=== PATIENT | male | born 1965 | race Caucasian/White ===

== ENCOUNTER 2018-06-30 15:55 | Emergency (ER) | payer OTHER ==
[2018-06-30] MEDS ORDERED: TETRACAINE HCL 0.5% 2ML OPTH ONE (16:12)
[2018-06-30] MEDS ORDERED: TETANUS & DIPHTHERIA TOX,ADULT 0.5 ML VIAL ONE (16:12)
[2018-06-30] MEDS ORDERED: FLUORESCEIN SODIUM 0.6 MG/WRAP ONE (16:12)
[2018-06-30] MEDS ORDERED: Ringers Lactate 2,000 ML IV ONE (16:24)
[2018-06-30] MEDS ORDERED: IBUPROFEN 400 MG TAB ONE (17:13)
[2018-06-30] MEDS ORDERED: IBUPROFEN 200 MG TAB PO ONE (17:14)
[2018-06-30] MEDS ORDERED: HYDROCODONE/APAP 7.5/325 MG TAB ONE (17:46)
[2018-06-30] MEDS ORDERED: Ringers Lactate 1,000 ML IV ONE (18:18)
--- NOTE | 2018-06-30 18:29 | ER ---
Nurse's Notes [facility] Name: Dillon Be Age: 53 yrs Sex: Male : 1965 Arrival Date: 06/30/2018 Time: 15:56 Bed 16 Private MD: Diagnosis: Contact with and (suspected) exposure to other hazardous, chiefly nonmedicinal, chemicals-Left Eye Presentation: 06/30 16:01 Presenting complaint: Patient states: that he was spraying for mosquitos around his home with Bifenthrin and it got in his left eye. The eye is now burning and red. Transition of care: patient was not received from another setting of care. Onset of symptoms was June 30, 2018 at 14:00. Risk Assessment: Do you want to hurt yourself or someone else? Patient reports no desire to harm self or others. Initial Sepsis Screen: Does the patient meet any 2 criteria? No. Patient's initial sepsis screen is negative. Does the patient have a suspected source of infection? No. Patient's initial sepsis screen is negative. Care prior to arrival: None. 16:01 Method Of Arrival: Ambulatory 16:01 Acuity: SERAFIN 2 Triage Assessment: 17:46 General: Appears in no apparent distress. uncomfortable, Behavior is. General: Behavior em is calm, cooperative. Pain: Complains of pain in left eye. Historical: - Allergies: 17:46 No Known Allergies; em - PMHx: 17:46 Depression; em - PSHx: 17:46 left sided nepherectomy; Carpal Tunnel Repair; em - Immunization history:: Last tetanus immunization: up to date. - Social history:: Smoking status: Patient/guardian denies using tobacco. - Ebola Screening: : Patient negative for fever greater than or equal to 101.5 degrees Fahrenheit, and additional compatible Ebola Virus Disease symptoms Patient denies exposure to infectious person Patient denies travel to an Ebola-affected area in the 21 days before illness onset. Screenin:01 Abuse screen: Denies threats or abuse. Nutritional screening: No deficits noted. fc Tuberculosis screening: No symptoms or risk factors identified. Fall Risk None identified. Assessment: 16:07 Reassessment: Spoke with Anusha at the [place] [facility] control [facility] who states that fc eye must be flushed x 30 mins with NS or LR. Then let it rest for 45 minutes. Redness should be gone. If irritation continues pt may need some eye drops and to follow up with optho. Case #[id number]. 17:48 Reassessment: Patient appears in no apparent distress at this time. Patient and/or em family updated on plan of care and expected duration. Pain level reassessed. Patient is alert, oriented x 3, equal unlabored respirations, skin warm/dry/pink. pt reports pain in eye, provider notified. 18:23 Reassessment: Patient appears in no apparent distress at this time. Patient and/or em family updated on plan of care and expected duration. Pain level reassessed. Patient is alert, oriented x 3, equal unlabored respirations, skin warm/dry/pink. 500 ml bag of LR administered into left eye via mark lens. 18:43 Reassessment: Patient appears in no apparent distress at this time. Patient and/or em family updated on plan of care and expected duration. Pain level reassessed. Patient is alert, oriented x 3, equal unlabored respirations, skin warm/dry/pink. Vital Signs: 16:01 Weight 113.4 kg (R); Height 5 ft. 9 in. (175.26 cm) (R); Pain 10/10; fc 16:04 BP 152 / 93; Pulse 95; Resp 16; Temp 98.4(O); Pulse Ox 97% on R/A; em1 17:08 BP 146 / 94; Pulse 68; Resp 20; Pulse Ox 98% on R/A; mh5 17:44 BP 150 / 99; Pulse 88; Resp 18; Pulse Ox 99% on R/A; Pain 9/10; em 18:16 BP 151 / 81; Pulse 69; Resp 18; Pulse Ox 96% on R/A; mh5 16:01 Body Mass Index 36.92 (113.40 kg, 175.26 cm) ED Course: 15:56 Patient arrived in ED. as 15:59 Deniz Gtz PA is PHCP. cp 15:59 Dagoberto Colon MD is Attending Physician. cp 16:01 Arm band placed on Patient placed in an exam room, on a stretcher. fc 16:01 Patient has correct armband on for positive identification. Bed in low position. Call light in reach. 16:03 Triage completed. fc 16:04 Arnoldo Gandara LVN is Primary Nurse. em 18:00 No provider procedures requiring assistance completed. Patient did not have IV access em during this emergency room visit. 18:27 Ed Aviles MD is Referral Physician. cp 18:47 Primary Nurse role handed off by Arnoldo Gandara LVN em Administered Medications: 16:15 Not Given (pt has UTD tetanus): Tetanus-Diphtheria Toxoid Adult 0.5 ml IM once em 16:25 Drug: Tetracaine Drops 0.5 % 1 drops Route: Ophthalmic; Site: left eye; ja1 17:00 Follow up: Response: No adverse reaction; Pain is decreased em 16:51 Drug: Lactated Ringers Solution 2000 ml {Note: administered in left eye using mark ja1 lens.} Route: IV; Rate: 2000 per protocol; Site: Other; 18:00 Follow up: Response: No adverse reaction em 17:16 Drug: Ibuprofen 800 mg Route: PO; ja1 18:46 Follow up: Response: No adverse reaction; Pain is unchanged, physician notified em 18:00 Drug: Bellamy (7.5 mg-325 mg) 1 tabs Route: PO; em 18:41 Follow up: Response: No adverse reaction; Pain is decreased em Outcome: 18:29 Discharge ordered by MD. cp 18:44 Discharged to home ambulatory, with family. em 18:44 Condition: good 18:44 Discharge instructions given to patient, family, Instructed on discharge instructions, follow up and referral plans. medication usage, Demonstrated understanding of instructions, follow-up care, medications, Prescriptions given X 2. 18:45 Patient left the ED. em 18:49 Patient left the ED. em Signatures: Lindsey Aparicio, RN PAVITHRA Arnoldo Gandara LVN LVN em Samira Banks Eric em1 Deniz Gtz PA PA cp Martinez, Maria Tai Richardson, RN RN zaida
--- NOTE | 2018-06-30 18:30 | EDPHYS ---
Physician Documentation [facility] Name: Dillon Be Age: 53 yrs Sex: Male : 1965 Arrival Date: 06/30/2018 Time: 15:56 Bed 16 Private MD: ED Physician Dagoberto Colon HPI: 06/30 16:09 This 53 yrs old Male presents to ER via Ambulatory with complaints of cp Chemical Exposure In Eye. 16:09 The patient is experiencing foreign body sensation, pain, redness, The patient cp sustained to the left eye, caused by chemicals. Onset: The symptoms/episode began/occurred today, at 14:00. Patient reading glasses. 16:09 Patient reports he was using mosquito spray around home and believes he may have gotten cp chemical on hand and rubbed eye. Historical: - Allergies: 17:46 No Known Allergies; em - PMHx: 17:46 Depression; em - PSHx: 17:46 left sided nepherectomy; Carpal Tunnel Repair; em - Immunization history:: Last tetanus immunization: up to date. - Social history:: Smoking status: Patient/guardian denies using tobacco. - Ebola Screening: : Patient negative for fever greater than or equal to 101.5 degrees Fahrenheit, and additional compatible Ebola Virus Disease symptoms Patient denies exposure to infectious person Patient denies travel to an Ebola-affected area in the 21 days before illness onset. ROS: 16:15 Constitutional: Negative for body aches, chills, fever, poor PO intake. cp 16:15 ENT: Negative for injury, pain, and discharge. cp 16:15 Eyes: Positive for foreign body sensation, pain, redness, of the left eye, Negative for discharge. 16:15 Cardiovascular: Negative for chest pain, palpitations. 16:15 Respiratory: Negative for cough, shortness of breath, wheezing. 16:15 Abdomen/GI: Negative for abdominal pain, nausea, vomiting, and diarrhea. 16:15 Skin: Negative for cellulitis, rash. 16:15 Neuro: Negative for dizziness, headache. 16:15 All other systems are negative. Exam: 16:25 Constitutional: The patient appears in no acute distress, alert, awake, non-toxic, well cp developed, well nourished, uncomfortable. 16:25 Head/Face: Normocephalic, atraumatic. cp 16:25 Eyes: Periorbital structures: appear normal, Pupils: equal, round, and reactive to light and accomodation, Extraocular movements: intact throughout, Conjunctiva: injected, in the left eye, Sclera: no appreciated abnormality, Anterior chamber: normal, no hyphema, on appreciated narrow angle closure, Lids and lashes: appear normal, bilaterally, Visual christensen: are intact, Examination of the other eye reveals no obvious gross abnormality. 16:25 ENT: External ear(s): are unremarkable, Ear canal(s): are normal, clear, TM's: are normal, no evidence of bulging, no erythema, Nose: is normal, Mouth: is normal, Posterior pharynx: is normal, airway is patent, no erythema, no exudate. 16:25 Neck: ROM/movement: is normal, is supple, without pain, no range of motions limitations, no meningismus, no nuchal rigidity, Lymph nodes: no appreciated lymphadenopathy. 16:25 Chest/axilla: Inspection: normal, Palpation: is normal, no crepitus, no tenderness. 16:25 Cardiovascular: Rate: normal, Rhythm: regular. 16:25 Respiratory: the patient does not display signs of respiratory distress, Respirations: cp normal, no use of accessory muscles, no retractions, no splinting, no tachypnea, labored breathing, is not present, Breath sounds: are clear throughout, no decreased breath sounds, no stridor, no wheezing. 16:25 Abdomen/GI: Inspection: abdomen appears normal, Palpation: abdomen is soft and non-tender, in all quadrants. 16:25 Skin: cellulitis, is not appreciated, no rash present. 16:30 Visual Acuity: given verbally: 20/20 right eye, 20/25 left eye uncorrected. cp 18:12 Eyes: Corneas: abrasion, is not appreciated, on the left, foreign body, is not cp appreciated, on the left, a fluorescein strip employed to appreciate the findings. Vital Signs: 16:01 Weight 113.4 kg (R); Height 5 ft. 9 in. (175.26 cm) (R); Pain 10/10; fc 16:04 BP 152 / 93; Pulse 95; Resp 16; Temp 98.4(O); Pulse Ox 97% on R/A; em1 17:08 BP 146 / 94; Pulse 68; Resp 20; Pulse Ox 98% on R/A; mh5 17:44 BP 150 / 99; Pulse 88; Resp 18; Pulse Ox 99% on R/A; Pain 9/10; em 18:16 BP 151 / 81; Pulse 69; Resp 18; Pulse Ox 96% on R/A; mh5 16:01 Body Mass Index 36.92 (113.40 kg, 175.26 cm) fc MDM: 16:00 Patient medically screened. cp 16:30 Differential diagnosis: Corneal abrasion of Corneal ulcer of Foreign body in Acute cp iritis of 18:27 Data reviewed: vital signs, nurses notes, and as a result, I will discharge patient. cp 18:27 Counseling: I had a detailed discussion with the patient and/or guardian regarding: the cp historical points, exam findings, and any diagnostic results supporting the discharge/admit diagnosis, the need for outpatient follow up, an opthalmologist, to return to the emergency department if symptoms worsen or persist or if there are any questions or concerns that arise at home. Response to treatment: the patient's symptoms have markedly improved after treatment, and as a result, I will discharge patient. 06/30 16:04 Order name: Visual Acuity; Complete Time: 16:05 cp 06/30 16:04 Order name: Eye Tray; Complete Time: 16:05 cp 06/30 16:04 Order name: Fluoresene Opth strip; Complete Time: 16:05 cp Administered Medications: 16:15 Not Given (pt has UTD tetanus): Tetanus-Diphtheria Toxoid Adult 0.5 ml IM once em 16:25 Drug: Tetracaine Drops 0.5 % 1 drops Route: Ophthalmic; Site: left eye; ja1 17:00 Follow up: Response: No adverse reaction; Pain is decreased em 16:51 Drug: Lactated Ringers Solution 2000 ml {Note: administered in left eye using mark ja1 lens.} Route: IV; Rate: 2000 per protocol; Site: Other; 18:00 Follow up: Response: No adverse reaction em 17:16 Drug: Ibuprofen 800 mg Route: PO; ja1 18:46 Follow up: Response: No adverse reaction; Pain is unchanged, physician notified em 18:00 Drug: Nada (7.5 mg-325 mg) 1 tabs Route: PO; em 18:41 Follow up: Response: No adverse reaction; Pain is decreased em Disposition: 06/30/18 18:29 Discharged to Home. Impression: Contact with and (suspected) exposure to other hazardous, chiefly nonmedicinal, chemicals - Left Eye. - Condition is Stable. - Discharge Instructions: Chemical Conjunctivitis, Adult. - Prescriptions for Gentamicin 0.3 % Ophthalmic Drops - instill 1 drop by OPHTHALMIC route every 4 hours for 7 days instill drops as directed while awake; 1 bottle. Tramadol 50 mg Oral Tablet - take 1 tablet by ORAL route every 8 hours as needed; 15 tablet. - Medication Reconciliation Form, Thank You Letter, Antibiotic Education, Prescription Opioid Use form. - Follow up: Ed Aviles MD; When: 2 - 3 days; Reason: Recheck today's complaints. - Problem is new. - Symptoms have improved. Signatures: Lindsey Aparicio RN RN fc Arnoldo Gandara, OPERATIONS/DISPATCH OPERATIONS/DISPATCH em Deniz Gtz PA PA cp Aguilar, Jose RN RN ja1 Corrections: (The following items were deleted from the chart) 18:45 18:29 06/30/2018 18:29 Discharged to Home. Impression: Contact with and (suspected) em exposure to other hazardous, chiefly nonmedicinal, chemicals - Left Eye. Condition is Stable. Forms are Medication Reconciliation Form, Thank You Letter, Antibiotic Education, Prescription Opioid Use. Follow up: Ed Aviles; When: 2 - 3 days; Reason: Recheck today's complaints. Problem is new. Symptoms have improved. 18:49 18:45 06/30/2018 18:29 Discharged to Home. Impression: Contact with and (suspected) em exposure to other hazardous, chiefly nonmedicinal, chemicals - Left Eye. Condition is Stable. Discharge Instructions: Chemical Conjunctivitis, Adult. Prescriptions for Gentamicin 0.3 % Ophthalmic Drops - instill 1 drop by OPHTHALMIC route every 4 hours for 7 days instill drops as directed while awake; 1 bottle, Tramadol 50 mg Oral Tablet - take 1 tablet by ORAL route every 8 hours as needed; 15 tablet. and Forms are Medication Reconciliation Form, Thank You Letter, Antibiotic Education, Prescription Opioid Use. Follow up: Ed Aviles; When: 2 - 3 days; Reason: Recheck today's complaints. Problem is new. Symptoms have improved. em
== END 2018-06-30 18:49 | disposition home or self-care (01) ==
LOC: ER 15:55
DX: Z77.098 Contact with and (suspected) exposure to other hazardous, chiefly nonmedicinal, chemicals (principal)
CPT/HCPCS: 90714; 99283

== ENCOUNTER 2019-07-09 12:33 | Emergency (ER) | payer OTHER ==
[2019-07-09] MEDS ORDERED: MORPHINE 4 MG/ML SYR ONE (16:17)
[2019-07-09] MEDS ORDERED: ONDANSETRON 4 MG/2 ML VIAL ONE (16:17)
[2019-07-09 16:29] LABS: Absolute Lymphocytes (CBC) 1.6 K/uL (0.7-4.9); Basophils % 0.8 % (0-1.3); Hematocrit 45.6 % (39.6-49.0); Lymphocytes % 23.1 % (15.3-44.8); MPV 9.6 fL (7.6-11.3); RBC Red Blood Cell Count 5.25 M/uL (4.33-5.43)
[2019-07-09 17:26] LABS: Albumin 4.1 g/dL (3.4-5.0); Bilirubin Direct 0.1 mg/dL (0-0.2); Bilirubin Total 0.5 mg/dL (0.2-1.0); Potassium 3.5 mmol/L (3.5-5.1); Protein, Total 7.8 g/dL (6.4-8.2)
--- NOTE | 2019-07-09 18:09 | RAD REPORT ---
EXAM DESCRIPTION: CTAbdomen Pelvis W Contrast - 07/09/2019 6:01 pm CLINICAL HISTORY: Abdominal pain. ABD PAIN COMPARISON: <Comparisons> TECHNIQUE: Biphasic CT imaging of the abdomen and pelvis was performed with 100 ml non-ionic IV cont rast. All CT scans are performed using dose optimization technique as appropriate and may include automated exposure control or mA/KV adjustment according to patient size. FINDINGS: The lung bases are clear. The liver, spleen, pancreas, adrenal glands and kidneys are within normal limits. Partial left nephre ctomy changes. No bowel obstruction, free air, free fluid or abscess. Mild inflammation is seen surrounding a small section of sigmoid colon in the left lower quadrant compatible with mild acute diverticulitis. No abs cess seen. The appendix is normal. No evidence of significant lymphadenopathy. No suspicious bony findings. IMPRESSION: Mild acute sigmoid diverticulitis in the left lower quadrant. No abscess.
[2019-07-09] MEDS ORDERED: FENTANYL CITR 100 MCG/2 ML ONE (18:11)
--- NOTE | 2019-07-09 19:01 | ER ---
[facility] Name: Dillon Be Age: 54 yrs Sex: Male : 1965 Arrival Date: 07/09/2019 Time: 12:34 Bed 14 Private MD: Diagnosis: Diverticulitis of large intestine without perforation or abscess without bleeding Presentation: 07/09 13:08 Presenting complaint: Patient states: lower abd pain since , denies dm5 n/v/d/constipation. Transition of care: patient was not received from another setting of care. Onset of symptoms was July 05, 2019. Risk Assessment: Do you want to hurt yourself or someone else? Patient reports no desire to harm self or others. Care prior to arrival: None. 13:08 Method Of Arrival: Ambulatory dm5 13:08 Acuity: SERAFIN 3 dm5 18:00 Initial Sepsis Screen: Does the patient meet any 2 criteria? No. Patient's initial iw sepsis screen is negative. Does the patient have a suspected source of infection? No. Patient's initial sepsis screen is negative. Triage Assessment: 13:08 General: Appears in no apparent distress. uncomfortable, Behavior is calm, cooperative, sv appropriate for age. Pain: Complains of pain in right lower quadrant and left lower quadrant. Neuro: Level of Consciousness is awake, alert, obeys commands, Gait is steady. Respiratory: Respiratory effort is even, unlabored, Respiratory pattern is regular, symmetrical. GI: Reports lower abdominal pain, Patient currently denies constipation, diarrhea, nausea, vomiting. Historical: - Allergies: 13:09 No Known Allergies; dm5 - PMHx: 13:09 Depression; dm5 - PSHx: 13:09 left sided nepherectomy; Carpal Tunnel Repair; dm5 - Immunization history:: Adult Immunizations unknown. - Social history:: Smoking status: unknown. - Ebola Screening: : Patient negative for fever greater than or equal to 101.5 degrees Fahrenheit, and additional compatible Ebola Virus Disease symptoms Patient denies exposure to infectious person Patient denies travel to an Ebola-affected area in the 21 days before illness onset No symptoms or risks identified at this time. Screenin:31 Abuse screen: Denies threats or abuse. Denies injuries from another. Nutritional iw screening: No deficits noted. Tuberculosis screening: No symptoms or risk factors identified. Fall Risk IV access (20 points). Assessment: 16:30 General: Appears in no apparent distress. Behavior is calm, cooperative. Pain: iw Complains of pain in suprapubic area, right lower quadrant and left lower quadrant Pain currently is 7 out of 10 on a pain scale. Neuro: Level of Consciousness is awake, alert, obeys commands, Oriented to person, place, time, situation, Moves all extremities. Full function. Cardiovascular: Patient's skin is warm and dry. Respiratory: Respiratory effort is even, unlabored, Respiratory pattern is regular, symmetrical. GI: Abdomen is round obese, Bowel sounds present X 4 quads. Abd is soft X 4 quads Abdomen is tender to palpation in suprapubic area, right lower quadrant and left lower quadrant Patient currently denies diarrhea, nausea, vomiting. : Denies burning with urination. 18:16 Reassessment: Patient appears in no apparent distress at this time. Patient and/or iw family updated on plan of care and expected duration. Pain level reassessed. Patient is alert, oriented x 3, equal unlabored respirations, skin warm/dry/pink. pt states pain has not improved after morphine, new orders received, pt medicated with 75 mcg Fentanyl ,VSS, family at bedside, waiting Ct results. Vital Signs: 13:07 BP 145 / 82; Pulse 92; Resp 16; Temp 98.5(TE); Pulse Ox 96% on R/A; Weight 108.86 kg; dm5 Height 5 ft. 9 in. (175.26 cm); Pain 7/10; 18:16 BP 142 / 88; Pulse 65; Resp 16; Pulse Ox 100% on R/A; Pain 7/10; iw 13:07 Body Mass Index 35.44 (108.86 kg, 175.26 cm) dm5 ED Course: 12:34 Patient arrived in ED. as 13:08 Triage completed. dm5 13:09 Arm band placed on Patient placed in waiting room, Patient notified of wait time. dm5 15:15 Jose Ramon Elam PA is PHCP. jr8 15:15 Deniz Vanessa MD is Attending Physician. jr8 15:38 Ernestina Reilly, RN is Primary Nurse. iw 15:48 Radiology exam delayed due to lab results not completed at this time. (BUN/Creatinine). bq 16:10 Initial lab(s) drawn, by me, sent to lab. Inserted saline lock: 20 gauge in right iw antecubital area, using aseptic technique. Blood collected. 18:00 Patient has correct armband on for positive identification. iw 18:04 CT Abd/Pelvis - IV Contrast Only In Process Unspecified. EDMS 19:00 Javier Fuentes MD is Referral Physician. jr8 19:20 No provider procedures requiring assistance completed. IV discontinued, intact, iw bleeding controlled, No redness/swelling at site. Pressure dressing applied. Administered Medications: 16:37 Drug: morphine 4 mg Route: IVP; Site: left antecubital; iw 16:37 Drug: Zofran 4 mg Route: IVP; Site: left antecubital; iw 18:15 Drug: fentaNYL (PF) 75 mcg {Note: RASS:0.} Route: IVP; Site: left antecubital; iw 19:23 Drug: Cipro 500 mg Route: PO; iw 19:23 Drug: Flagyl 500 mg Route: PO; iw Outcome: 19:01 Discharge ordered by . jr8 19:20 Discharged to home ambulatory, with family. iw 19:20 Condition: good 19:20 Discharge instructions given to patient, family, Instructed on discharge instructions, follow up and referral plans. medication usage, Demonstrated understanding of instructions, follow-up care, medications, Prescriptions given X 4. 19:24 Patient left the ED. iw Signatures: Dispatcher [employer] EDMS Alice Smiley RN RN dm5 Kristin Garcia RN RN sv Quilty, Betty bq Martinez, Amelia as Williams, Irene, RN RN iw Jose Ramon Elam PA PA jr8 Corrections: (The following items were deleted from the chart) 13:09 13:07 Pulse 92bpm; Pulse Ox 96% RA; Temp 98.5F Temporal; 108.86 kg; Height 5 ft. 9 in.; dm5 BMI: 35.4; Pain 7/10; dm5
--- NOTE | 2019-07-09 19:02 | EDPHYS ---
Physician Documentation [facility] Name: Dillon Be Age: 54 yrs Sex: Male : 1965 Arrival Date: 07/09/2019 Time: 12:34 Bed 14 Private MD: ED Physician Deniz Vanessa HPI: 07/09 15:59 This 54 yrs old Male presents to ER via Ambulatory with complaints of jr8 Abdominal Pain. 15:59 The patient presents with abdominal pain in the lower abdomen, in the left lower jr8 quadrant. Onset: The symptoms/episode began/occurred 5 day(s) ago. The symptoms do not radiate. Associated signs and symptoms: none. Pertinent negatives: nausea, vomiting, and diarrhea, blood in stools, constipation, diarrhea, dysuria, fever, hematuria, nausea, vomiting, vomiting blood. The symptoms are described as sharp. Modifying factors: The symptoms are alleviated by nothing, the symptoms are aggravated by nothing. Severity of pain: At its worst the pain was moderate in the emergency department the pain is unchanged. The patient has experienced a previous episode. The patient has not recently seen a physician. Pt reports lower abd and LLQ pain for the last five days, reports hx of diverticulitis, denies N/V/D, denies perineal pain. . Historical: - Allergies: 13:09 No Known Allergies; dm5 - PMHx: 13:09 Depression; dm5 - PSHx: 13:09 left sided nepherectomy; Carpal Tunnel Repair; dm5 - Immunization history:: Adult Immunizations unknown. - Social history:: Smoking status: unknown. - Ebola Screening: : Patient negative for fever greater than or equal to 101.5 degrees Fahrenheit, and additional compatible Ebola Virus Disease symptoms Patient denies exposure to infectious person Patient denies travel to an Ebola-affected area in the 21 days before illness onset No symptoms or risks identified at this time. ROS: 15:59 Constitutional: Negative for fever, chills, and weight loss, Eyes: Negative for injury, jr8 pain, redness, and discharge, ENT: Negative for injury, pain, and discharge, Neck: Negative for injury, pain, and swelling, Cardiovascular: Negative for chest pain, palpitations, and edema, Respiratory: Negative for shortness of breath, cough, wheezing, and pleuritic chest pain, Back: Negative for injury and pain, : Negative for injury, bleeding, discharge, and swelling, MS/Extremity: Negative for injury and deformity, Neuro: Negative for headache, weakness, numbness, tingling, and seizure. 15:59 Abdomen/GI: Positive for abdominal pain, Negative for nausea and vomiting, nausea, vomiting, diarrhea, black/tarry stool, rectal pain. Exam: 15:59 Constitutional: This is a well developed, well nourished patient who is awake, alert, jr8 and in no acute distress. Head/Face: Normocephalic, atraumatic. Eyes: Pupils equal round and reactive to light, extra-ocular motions intact. Lids and lashes normal. Conjunctiva and sclera are non-icteric and not injected. Cornea within normal limits. Periorbital areas with no swelling, redness, or edema. ENT: Nares patent. No nasal discharge, no septal abnormalities noted. Tympanic membranes are normal and external auditory canals are clear. Oropharynx with no redness, swelling, or masses, exudates, or evidence of obstruction, uvula midline. Mucous membranes moist. Neck: Trachea midline, no thyromegaly or masses palpated, and no cervical lymphadenopathy. Supple, full range of motion without nuchal rigidity, or vertebral point tenderness. No Meningismus. Chest/axilla: Normal chest wall appearance and motion. Nontender with no deformity. No lesions are appreciated. Cardiovascular: Regular rate and rhythm with a normal S1 and S2. No gallops, murmurs, or rubs. Normal PMI, no JVD. No pulse deficits. Respiratory: Lungs have equal breath sounds bilaterally, clear to auscultation and percussion. No rales, rhonchi or wheezes noted. No increased work of breathing, no retractions or nasal flaring. Back: No spinal tenderness. No costovertebral tenderness. Full range of motion. Skin: Warm, dry with normal turgor. Normal color with no rashes, no lesions, and no evidence of cellulitis. Neuro: Awake and alert, GCS 15, oriented to person, place, time, and situation. Cranial nerves II-XII grossly intact. Motor strength 5/5 in all extremities. Sensory grossly intact. Cerebellar exam normal. Normal gait. 15:59 Abdomen/GI: Inspection: abdomen appears normal, Bowel sounds: normal, Palpation: soft, in all quadrants, moderate abdominal tenderness, in the left lower quadrant, Indicators: McBurney's point is not tender, Hanley's sign is negative, Rovsing's sign is negative, Obturator sign is negative, Psoas sign is negative. Vital Signs: 13:07 BP 145 / 82; Pulse 92; Resp 16; Temp 98.5(TE); Pulse Ox 96% on R/A; Weight 108.86 kg; dm5 Height 5 ft. 9 in. (175.26 cm); Pain 7/10; 18:16 BP 142 / 88; Pulse 65; Resp 16; Pulse Ox 100% on R/A; Pain 7/10; iw 13:07 Body Mass Index 35.44 (108.86 kg, 175.26 cm) dm5 MDM: 15:15 Patient medically screened. jr8 19:00 Data reviewed: vital signs, nurses notes, lab test result(s), radiologic studies, CT jr8 scan, and as a result, I will discharge patient. Data interpreted: Pulse oximetry: on room air is 100 %. Interpretation: normal. 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 Response to treatment: the patient's symptoms have markedly improved after treatment. 07/09 15:43 Order name: Basic Metabolic Panel; Complete Time: 17:31 iw 07/09 15:43 Order name: CBC with Diff 07/09 15:43 Order name: Creatinine for Radiology; Complete Time: 17:43 iw 07/09 15:43 Order name: Hepatic Function; Complete Time: 17:31 iw 07/09 15:43 Order name: Lipase; Complete Time: 17:31 iw 07/09 15:43 Order name: CT Abd/Pelvis - IV Contrast Only; Complete Time: 18:59 iw 07/09 15:43 Order name: IV Saline Lock; Complete Time: 16:37 iw 07/09 15:43 Order name: Labs collected and sent; Complete Time: 16:37 iw Administered Medications: 16:37 Drug: morphine 4 mg Route: IVP; Site: left antecubital; iw 16:37 Drug: Zofran 4 mg Route: IVP; Site: left antecubital; iw 18:15 Drug: fentaNYL (PF) 75 mcg {Note: RASS:0.} Route: IVP; Site: left antecubital; iw 19:23 Drug: Cipro 500 mg Route: PO; iw 19:23 Drug: Flagyl 500 mg Route: PO; iw Disposition: 07/10 07:45 Co-signature as Attending Physician, Deniz Vanessa MD I agree with the assessment and [facility] plan of care. Disposition: 07/09/19 19:01 Discharged to Home. Impression: Diverticulitis of large intestine without perforation or abscess without bleeding. - Condition is Stable. - Discharge Instructions: Diverticulitis. - Prescriptions for Cipro 500 mg Oral Tablet - take 1 tablet by ORAL route every 12 hours for 10 days; 20 tablet. Flagyl 500 mg Oral Tablet - take 1 tablet by ORAL route every 6 hours for 10 days; 40 tablet. Tylenol- Codeine #3 300-30 mg Oral Tablet - take 2 tablets by ORAL route every 6 hours As needed; 12 tablet. Zofran 4 mg Oral Tablet - take 1 tablet by ORAL route every 12 hours As needed; 20 tablet. - Medication Reconciliation Form, Thank You Letter, Antibiotic Education, Prescription Opioid Use form. - Follow up: Javier Fuentes MD; When: 1 week; Reason: Recheck today's complaints, Continuance of care, Re-evaluation by your physician. - Problem is new. - Symptoms have improved. Signatures: Dispatcher [employer] Alice Gipson, RN RN 5 Deniz Vanessa MD MD cha Williams, Irene, RN RN Jose Ramon Elam PA PA jr8 Corrections: (The following items were deleted from the chart) 07/09 19:24 19:01 07/09/2019 19:01 Discharged to Home. Impression: Diverticulitis of large iw intestine without perforation or abscess without bleeding. Condition is Stable. Forms are Medication Reconciliation Form, Thank You Letter, Antibiotic Education, Prescription Opioid Use. Follow up: Javier Fuentes; When: 1 week; Reason: Recheck today's complaints, Continuance of care, Re-evaluation by your physician. Problem is new. Symptoms have improved. jr8
[2019-07-09] MEDS ORDERED: metroNIDAZOLE 500 MG TABLET ONE (19:15)
[2019-07-09] MEDS ORDERED: CIPROFLOXACIN HCL 500 MG TAB ONE (19:15)
[2019-07-09 19:33] VITALS: TEMP 98.5
[2019-07-09 19:34] VITALS: BP 142/88; O2SAT 100
== END 2019-07-09 19:24 | disposition home or self-care (01) ==
LOC: ER 12:33
DX: K57.32 Diverticulitis of large intestine without perforation or abscess without bleeding (principal)
CPT/HCPCS: 85025; 80048; 36415; 80076; 83690; 74177; 96375; 96374; 99284; Q9966; J3010; J2405

== ENCOUNTER 2022-09-19 11:15 | Observation (INO) | payer OTHER ==
--- OUTSIDE RECORDS SUMMARY | 2022-09-19 11:18 | XMS REPORT | Continuity of Care Document ---
:1965 Author Organization [facility] t Address [facility] Travis Lomeli. [address] [place] [id number] Care Team Providers Name Role Phone oFx Vang Primary Care Physician 1, [facility] Bed Attending Clinician Unavailable Rivka Edge MD Attending Clinician RIVKA EDGE Attending Clinician Unavailable RIVKA EDGE Attending Clinician Unavailable Only, [facility] Test Attending Clinician Unavailable Doctor Unassigned, Gandy Attending Clinician Unavailable Fox Delgado MD Attending Clinician FOX DELGADO Attending Clinician Unavailable Payers Payer Name Policy Type Policy Number Effective Date Expiration Date S ource Problems This patient has no known problems. Allergies, Adverse Reactions, Alerts Allergy Allergy Status Severity Reaction(s) Onset Inactive Treating Comm ents Source Name Type Date Date Clinician NO KNOWN Drug Active Univers ALLERGIE Class ity of S [facility] Social History Social Habit Start Date Stop Date Quantity Comments Source Exposure to 2022-04-12 2022-04-22 Not sure [facility] SARS-CoV-2 (event) 00:00:00 21:06:00 Medica l Branch Sex Assigned At [birth year] [facility] 00:00:00 00:00:00 Medical [place] Smoking Status Start Date Stop Date Source Unknown if ever smoked [facility] Medications This patient has no known medications. 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 [id number] [id number] [facility] 19:30:00 22:00:00 Visit Rivka Edge [id number]. 10 ity of [facility] [id number] [facility] [id number] [facility] [address] 2022-04-22 2022-04-22 Outpatient R RIVKA EDGE [facility] [id number] Univers 19:30: 19:30:00 RIVKA EDGE ituma [facility] 2022-04-21 2022-04-21 Laboratory Only, [facility] Test [facility] 1.2.840. 114 [id number] Univers 07:30:00 07:45:00 Only Rivka Edge 350.1.13. 10 ity of [facility] [id number] [facility] [id number] [facility] [address] 2022-04-21 2022-04-21 Outpatient R RIVKA EDGE [facility] [id number] Univers 07:30:00 07:30:00 ALIYAH EDGEL ity [facility] 2022-04-21 2022-04-21 Orders Doctor FONTANA [id number] [id number] Univers 00:00:00 00:00:00 Only UnassignedJULIANA 350.1.13.10 ity of Gandy [facility] [id number] [facility] [id number] [facility] [address] 2022-04-12 2022-04-12 Outpatient R RIVKA EDGE [facility] [id number] Univers 19:30:00 19:30:00 RIVKA EDGE ituma [facility] 2022-03-11 2022-03-11 Outpatient R RIVKA EDGE [facility] [id number] Univers 19:30:00 19:30:00 RIVKA EDGE ituma of [facility] 2022-02-27 2022-02-27 Outpatient R RIVKA EDGE [facility] [id number] Univers 19:30:00 19:30:00 ALIYAH EDGEL ituma [facility] 2022-01-15 2022-01-15 Orders Doctor ADDI 1.2.840.114 [id number] Univers 00:00:00 00:00:00 Only Unassigned, JULIANA 350.1.13.10 ity of [facility] [id number] [facility] [id number] [facility] [address] 2021-12-08 2021-12-08 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 2.840.114 [id number] Univers 19:30:00 22:00:00 Visit GreggVida leejulianne TAVERAS 350.1.13. 10 ity [facility] [id number] [facility] [id number] [facility] [address] 2021-12-08 2021-12-08 Outpatient R RIVKA EDGE [facility] [id number] Univers 19:30:00 19:30:00 RIVKA EDGE [facility] 2021-12-07 2021-12-07 Laboratory Only, [facility] Test [facility] 1.2.840. 114 [id number] Univers 08:00:00 08:15:00 Only Fox Delgado 350.1.13.10 ity [facility] [id number] [facility] [id number] [facility] [address] 2021-12-07 2021-12-07 Outpatient R DANNY [facility] [id number] Univers 08:00:00 08:00:00 FOX low [facility] Results This patient has no known results.
[2022-09-19] MEDS ORDERED: ASPIRIN 81 MG CHEWABLE TABLET ONE (11:34)
[2022-09-19 11:42] LABS: Absolute Lymphocytes (CBC) 1.5 K/uL (0.7-4.9); Hematocrit 50.1 % (39.6-49.0); Lymphocytes % 22.5 % (15.3-44.8); MCV 86.5 fL (80-100); MPV 8.7 fL (7.6-11.3)
[2022-09-19 11:59] LABS: Magnesium 2.3 mg/dL (1.8-2.4); Troponin High Sensitivity 16.1 pg/mL (<58.9)
--- NOTE | 2022-09-19 12:55 | RAD REPORT ---
EXAM DESCRIPTION: CT - Chest Angio - 09/19/2022 12:25 pm CLINICAL HISTORY: Chest pain COMPARISON: None. TECHNIQUE: Dynamically enhanced axial 3 mm thick images of the chest were obtained during administra tion of <100> mL Isovue 370 IV contrast. Coronal and oblique reconstruction images were generated and reviewed. Exam utilizes a protocol for optimal evaluation of pulmonary arterial tree. Maximum intensity projections 3D imaging was utilized All CT scans are performed using dose optimization technique as appropriate and may include automated exposure control or mA/KV adjustment according to patient size. FINDINGS: The opacification the pulmonary arteries is somewhat suboptimal. A pulmonary embolus is no t seen. A thoracic aortic aneurysm is not noted. A pleural effusion is not seen. A pericardial effusion is not seen. A lung consolidation is not present. 25 millimeter nodule left lower lobe. 3 millimeter subpleural nodule right middle lobe IMPRESSION: No gross evidence of a pulmonary embolism 25 millimeter nodule left lower lobe may represent neoplasm Additional 3 millimeter right middle lobe subpleural nodule
--- NOTE | 2022-09-19 12:57 | RAD REPORT ---
EXAM DESCRIPTION: [facility] Single View09/19/2022 12:02 pm CLINICAL HISTORY: Chest pain COMPARISON: CT chest September 19, 2022 FINDINGS: The known a 25 millimeter left lower lobe nodule is not well visualized on this exam as it is obscured by the heart. 3 millimeter right middle lobe nodule it is also not clearly seen. Otherwise, lungs appear clear. Heart is normal size
[2022-09-19 14:09] LABS: SARS-COV-2 RT PCR NEGATIVE (NEGATIVE)
--- NOTE | 2022-09-19 14:15 | ER ---
Nurse's Notes [facility] Name: Dillon Be Age: 57 yrs Sex: Male : 1965 Arrival Date: 09/19/2022 Time: 11:16 Bed 25 Private MD: Diagnosis: Chest pain, unspecified;Pulmonary nodules Presentation: 09/19 11:26 Chief complaint: Patient states: left chest pressure and SOB x1 day with associated kb3 bilateral hand and feet swelling x3 days. Denies fever, congestion, N/V. Coronavirus screen: Vaccine status: Patient reports receiving the 2nd dose of the covid vaccine. Client denies travel out of the [place] in the last 14 days. Ebola Screen: Patient negative for fever greater than or equal to 101.5 degrees Fahrenheit, and additional compatible Ebola Virus Disease symptoms Patient denies exposure to infectious person. Patient denies travel to an Ebola-affected area in the 21 days before illness onset. Initial Sepsis Screen: Does the patient meet any 2 criteria? No. Patient's initial sepsis screen is negative. Does the patient have a suspected source of infection? No. Patient's initial sepsis screen is negative. Risk Assessment: Do you want to hurt yourself or someone else? Patient reports no desire to harm self or others. Onset of symptoms was September 18, 2022. 11:26 Method Of Arrival: Ambulatory 3 11:26 Acuity: SERAFIN 2 kb3 Triage Assessment: : General: Appears in no apparent distress. uncomfortable, Behavior is calm, cooperative. kb3 Pain: Complains of pain in left clavicle, anterior aspect of left upper chest and left breast Pain does not radiate. Pain currently is 8 out of 10 on a pain scale. Quality of pain is described as pressure, Pain began 1 day ago. Is continuous, Also complains of diaphoresis, sleeplessness, shortness of breath. Cardiovascular: Reports chest pain, diaphoresis, shortness of breath. Respiratory: Reports shortness of breath at rest the patient has mild shortness of breath. Historical: - Allergies: 11: No Known Allergies; kb3 - Home Meds: 11:34 duloxetine 60 mg oral CDRS 1 cap once daily [Active]; lithium carbonate 300 mg Oral cap kb3 1 cap daily [Active]; lithium carbonate 300 mg Oral cap 3 cap nightly [Active]; propranolol 80 mg Oral Cs24 1 cap once daily [Active]; lisinopril-hydrochlorothiazide 20-12.5 mg oral tab 1 tab once daily [Active]; atorvastatin 80 mg oral tab 1 tab once daily [Active]; - PMHx: 11:27 Depression; Bipolar disorder; Hypercholesterolemia; Hypertensive disorder; kb3 - PSHx: 11:27 Left Nephrectomy; Bilateral Carpel Tunnel Sx; Right Elbow Sx; kb3 - Immunization history:: Adult Immunizations up to date, Client reports receiving the 2nd dose of the Covid vaccine, Last tetanus immunization: up to date. - Social history:: Smoking status: Patient denies any tobacco usage or history of. Screenin:41 Abuse screen: Denies threats or abuse. Denies injuries from another. Nutritional tp1 screening: No deficits noted. Tuberculosis screening: No symptoms or risk factors identified. Fall Risk None identified. Assessment: 11:37 General: Appears in no apparent distress. comfortable, Behavior is calm, cooperative. tp1 Pain: Complains of pain in chest Pain does not radiate. Pain currently is 7 out of 10 on a pain scale. Quality of pain is described as pressure, Pain began 1 day ago. Is continuous. Neuro: Level of Consciousness is awake, alert, obeys commands, Oriented to person, place, time, situation, Reports dizziness, numbness in left foot Denies blurred vision headache. Cardiovascular: Reports diaphoresis, shortness of breath, Patient's skin is warm and dry. Rhythm is sinus rhythm. Respiratory: Airway is patent Respiratory effort is even, unlabored. GI: Abdomen is obese, Patient currently denies nausea. : No signs and/or symptoms were reported regarding the genitourinary system. EENT: No signs and/or symptoms were reported regarding the EENT system. Derm: Skin is pink, warm \T\ dry. Musculoskeletal: Circulation, motion, and sensation intact. 12:45 Reassessment: Patient appears in no apparent distress at this time. No changes from tp1 previously documented assessment. Patient and/or family updated on plan of care and expected duration. Pain level reassessed. Patient is alert, oriented x 3, equal unlabored respirations, skin warm/dry/pink. 13:42 Reassessment: Patient appears in no apparent distress at this time. Patient is alert, tp1 oriented x 3, equal unlabored respirations, skin warm/dry/pink. continues to CO SOB and chest pressure. 14:28 Reassessment: Patient appears in no apparent distress at this time. No changes from tp1 previously documented assessment. Patient is alert, oriented x 3, equal unlabored respirations, skin warm/dry/pink. at bedside. 15:27 Reassessment: Patient appears in no apparent distress at this time. No changes from tp1 previously documented assessment. Patient is alert, oriented x 3, equal unlabored respirations, skin warm/dry/pink. resting comfortably watching TV. Vital Signs: 11:26 BP 151 / 90; Pulse 106; Resp 22; Pulse Ox 97% ; Weight 120.2 kg; Height 5 ft. 9 in. kb3 (175.26 cm); Pain 8/10; 12:45 BP 136 / 81; Pulse 89; Resp 18; Pulse Ox 98% on R/A; tp1 13:42 BP 150 / 87; Pulse 77; Resp 17; Pulse Ox 99% on R/A; tp1 14:29 BP 135 / 81; Pulse 84; Resp 18; Pulse Ox 100% on R/A; tp1 15:27 BP 133 / 73; Pulse 75; Resp 20; Pulse Ox 97% on R/A; tp1 11:26 Body Mass Index 39.13 (120.20 kg, 175.26 cm) kb3 ED Course: 11:16 Patient arrived in ED. am2 11:19 Kali Castillo DO is Attending Physician. ms3 11:25 Patient has correct armband on for positive identification. Placed in gown. Call light mm9 in reach. Side rails up X 1. Adult w/ patient. Warm blanket given. property assessment monitor on. Pulse ox on. NIBP on. 11:26 EKG done, by ED staff, reviewed by Kali Castillo DO. mm9 11:27 Triage completed. kb3 11:27 Arm band placed on right wrist. Patient placed in an exam room, on a stretcher. kb3 11:31 Helena Trammell, PAVITHRA is Primary Nurse. tp1 11:37 No provider procedures requiring assistance completed. Inserted saline lock: 20 gauge tp1 in right antecubital area, using aseptic technique. Blood collected. Patient maintains SpO2 saturation greater than 95% on room air. 12:03 XRAY Chest (1 view) In Process Unspecified. EDMS 12:27 CT Chest Angio In Process Unspecified. EDMS 13:07 COVID-19/FLU A+B Sent. tp1 14:12 Neva Fu MD is Hospitalizing Provider. ms3 18:10 Patient admitted, IV remains in place. intact, No redness/swelling at site. jl7 Administered Medications: 11:36 Drug: Aspirin Chewable Tablet 324 mg Route: PO; tp1 12:57 Follow up: Response: No adverse reaction tp1 Medication: 11:41 VIS not applicable for this client. tp1 Outcome: 14:14 Decision to Hospitalize by Provider. ms3 17:00 Admitted to ER Hold. [facility]. jl7 17:00 Condition: stable 17:00 Discharge instructions given to patient, Instructed on the need for admit, Demonstrated understanding of instructions. 20:40 Patient left the ED. kd3 Signatures: Dispatcher [employer] EDMS Petrona Barros RN RN jl7 Zeny Matthews am2 Kali Castillo DO DO ms3 Lori Vincent RN RN kd3 Helena Trammell RN RN tp1 Priti Bellamy, PAVITHRA RN kb3 Divina Banks mm9
--- NOTE | 2022-09-19 14:15 | EDPHYS ---
Physician Documentation [facility] Name: Dillon Be Age: 57 yrs Sex: Male : 1965 Arrival Date: 09/19/2022 Time: 11:16 Bed 25 Private MD: ED Physician Kali Castillo HPI: 09/19 14:41 This 57 yrs old Male presents to ER via Ambulatory with complaints of Chest Pressure, ms3 Leg Pain - tingling, Breathing Difficulty. 14:41 The patient or guardian reports chest pain that is located primarily in the substernal ms3 area. Onset: 1 day(s) ago. The pain does not radiate. Associated signs and symptoms: Pertinent positives: diaphoresis, nausea, shortness of breath. The chest pain is described as a pressure. Duration: The patient or guardian reports a single episode, that is still ongoing. Modifying factors: The symptoms are alleviated by nothing. the symptoms are aggravated by nothing. Severity of pain: At its worst the pain was moderate in the emergency department the pain is unchanged. Historical: - Allergies: : No Known Allergies; kb3 - Home Meds: 11:34 duloxetine 60 mg oral CDRS 1 cap once daily [Active]; lithium carbonate 300 mg Oral cap kb3 1 cap daily [Active]; lithium carbonate 300 mg Oral cap 3 cap nightly [Active]; propranolol 80 mg Oral Cs24 1 cap once daily [Active]; lisinopril-hydrochlorothiazide 20-12.5 mg oral tab 1 tab once daily [Active]; atorvastatin 80 mg oral tab 1 tab once daily [Active]; - PMHx: 11:27 Depression; Bipolar disorder; Hypercholesterolemia; Hypertensive disorder; kb3 - PSHx: : Left Nephrectomy; Bilateral Carpel Tunnel Sx; Right Elbow Sx; kb3 - Immunization history:: Adult Immunizations up to date, Client reports receiving the 2nd dose of the Covid vaccine, Last tetanus immunization: up to date. - Social history:: Smoking status: Patient denies any tobacco usage or history of. ROS: 14:41 Constitutional: Negative for fever, and chills. ENT: Negative for injury, pain, and ms3 discharge, Neck: Negative for injury, pain, and swelling. 14:41 Abdomen/GI: Negative for abdominal pain, nausea, vomiting, diarrhea, and constipation, MS/Extremity: Negative for injury and deformity, Skin: Negative for injury, rash, and discoloration. 14:41 Cardiovascular: Positive for chest pain. 14:41 Respiratory: Positive for dyspnea on exertion, shortness of breath. 14:41 All other systems are negative. Exam: 14:41 Head/Face: Normocephalic, atraumatic. ENT: Nares patent. No nasal discharge, no ms3 septal abnormalities noted. Tympanic membranes are normal and external auditory canals are clear. Oropharynx with no redness, swelling, or masses, exudates, or evidence of obstruction, uvula midline. Mucous membranes moist. Neck: Trachea midline, no cervical lymphadenopathy. Supple, full range of motion without nuchal rigidity, or vertebral point tenderness. No Meningismus. Chest/axilla: Normal chest wall appearance and motion. Nontender with no deformity. Respiratory: Lungs have equal breath sounds bilaterally, clear to auscultation and percussion. No rales, rhonchi or wheezes noted. No increased work of breathing, no retractions or nasal flaring. Abdomen/GI: Soft, non-tender, with normal bowel sounds. No distension or tympany. No guarding or rebound. No evidence of tenderness throughout. Skin: Warm, dry with normal turgor. Normal color with no rashes, no lesions, and no evidence of cellulitis. MS/ Extremity: Pulses equal, no cyanosis. Neurovascular intact. Full, normal range of motion. 14:41 Constitutional: The patient appears in no acute distress, alert, awake, comfortable, non-diaphoretic, non-toxic, well hydrated, well groomed, obese. 15:47 ECG was reviewed by the Attending Physician. ms3 Vital Signs: 11:26 BP 151 / 90; Pulse 106; Resp 22; Pulse Ox 97% ; Weight 120.2 kg; Height 5 ft. 9 in. kb3 (175.26 cm); Pain 8/10; 12:45 BP 136 / 81; Pulse 89; Resp 18; Pulse Ox 98% on R/A; tp1 13:42 BP 150 / 87; Pulse 77; Resp 17; Pulse Ox 99% on R/A; tp1 14:29 BP 135 / 81; Pulse 84; Resp 18; Pulse Ox 100% on R/A; tp1 15:27 BP 133 / 73; Pulse 75; Resp 20; Pulse Ox 97% on R/A; tp1 11:26 Body Mass Index 39.13 (120.20 kg, 175.26 cm) kb3 MDM: 11:29 Patient medically screened. ms3 13:11 HEART Score: History: Slightly Suspicious (0), ECG: Non specific repolarization ms3 disturbance / LBTB / PM (1), Age: > 45 and < 65 years (1), Risk Factors: > or = 3 Risk factors for atherosclerotic disease (2), [Hypercholesterolemia] [Hypertension] [Obesity] Troponin: < or = 1 x Normal Limit (0), Total Score = 4. 14:41 The patient was given aspirin in the Emergency Department. Data reviewed: vital signs, ms3 nurses notes, lab test result(s), EKG, radiologic studies, and as a result, I will admit patient. Data interpreted: child monitor: rate is 85 beats/min, rhythm is normal sinus rhythm, regular, with no ectopy, Interpretation: normal rate, normal rhythm, Pulse oximetry:. Counseling: I had a detailed discussion with the patient and/or guardian regarding: the historical points, exam findings, and any diagnostic results supporting the discharge/admit diagnosis, lab results, radiology results, the need for further work-up and treatment in the hospital. ED course: Discussed case with Dr Fu and he accepts patient as observation. All questions answered. Discussed plan with patient and his and he understands/ agrees with plan. Discussed pulmonary nodules and possible neoplasm with patient and his . Recommended patient to follow up with pulmonology after discharge.. 09/19 11:20 Order name: Basic Metabolic Panel; Complete Time: 12:04 ms3 09/19 11:20 Order name: CBC with Diff; Complete Time: 11:57 ms3 09/19 11:20 Order name: Magnesium; Complete Time: 12:04 ms3 09/19 11:20 Order name: NT PRO-BNP; Complete Time: 12:04 ms3 09/19 11:20 Order name: Troponin HS; Complete Time: 12:04 ms3 09/19 11:29 Order name: D-Dimer; Complete Time: 11:57 ms3 09/19 12:41 Order name: COVID-19/FLU A+B; Complete Time: 14:09 ms3 09/19 15:10 Order name: Basic Metabolic Panel EDMS 09/19 15:10 Order name: Basic Metabolic Panel EDMS 09/19 15:10 Order name: CBC with Automated Diff EDMS 09/19 15:10 Order name: CBC with Automated Diff EDMS 09/19 15:10 Order name: Lipid Profile EDMS 09/19 15:10 Order name: Lipid Profile EDMS 09/19 19:56 Order name: Protime (+INR) EDMS 09/19 11:20 Order name: XRAY Chest (1 view); Complete Time: 13:02 ms3 09/19 11:20 Order name: EKG; Complete Time: 11:20 ms3 09/19 11:20 Order name: Cardiac monitoring; Complete Time: 11:25 ms3 09/19 11:20 Order name: EKG - Nurse/Tech; Complete Time: 11:25 ms3 09/19 11:20 Order name: IV Saline Lock; Complete Time: 11:31 ms3 09/19 11:20 Order name: Labs collected and sent; Complete Time: 11:31 ms3 09/19 11:20 Order name: O2 Per Protocol; Complete Time: 11:25 ms3 09/19 11:20 Order name: O2 Sat Monitoring; Complete Time: 11:25 ms3 09/19 11:57 Order name: CT Chest Angio; Complete Time: 13:02 ms3 09/19 15:10 Order name: CONS Physician Consult EDMS 09/19 15:10 Order name: Heart Healthy EDMS 09/19 15:10 Order name: Echo with Doppler EDMS 09/19 15:10 Order name: Echo with Doppler EDMS 09/19 19:56 Order name: PTT, Activated Partial Thromb EDMS 09/19 20:07 Order name: Troponin High Sensitivity EDMS EC:47 Rate is 98 beats/min. Rhythm is regular. Left axis deviation noted. MN interval is ms3 normal. QRS interval is normal. Clinical impression: NSR w/ Non-specific ST/T Changes. Interpreted by me. Reviewed by me. Administered Medications: 11:36 Drug: Aspirin Chewable Tablet 324 mg Route: PO; tp1 12:57 Follow up: Response: No adverse reaction tp1 Disposition Summary: 09/19/22 14:14 Hospitalization Ordered Hospitalization Status: Observation ms3 Provider: Neva Fu ms3 Condition: Stable ms3 Problem: new ms3 Symptoms: are unchanged ms3 Bed/Room Type: Standard ms3 Location: Telemetry/MedSurg (observation)(09/19/22 19:01) cg [facility](09/19/22 19:39) Diagnosis - Chest pain, unspecified ms3 - Pulmonary nodules ms3 Forms: - Medication Reconciliation Form ms3 - SBAR form ms3 Signatures: Dispatcher [employer] Michelle Reyes, RN RN cg Petrona Barros RN RN jl7 Kali Castillo DO DO ms3 Helena Trammell RN RN tp1 Priti Bellamy RN RN kb3 Corrections: (The following items were deleted from the chart) 16:41 14:14 Telemetry/MedSurg (observation) ms3 jl7 16:41 14:14 ms3 jl7 19:01 16:41 [facility] ER HOLD jl7 cg 19:01 16:41 ERHOLD- jl7 cg 19:39 19:01 cg
[2022-09-19] MEDS ORDERED: ACETAMINOPHEN 500 MG TAB PO PRN (15:06)
[2022-09-19] MEDS: ENOXAPARIN 40 MG/0.4 ML SQ SCH (16:00)
[2022-09-19] MEDS ORDERED: ENOXAPARIN 40 MG/0.4 ML SQ ONE (16:06)
[2022-09-19] MEDS ORDERED: MORPHINE 2 MG/ML SYR ONE ×2 (16:25→19:56)
[2022-09-19] MEDS: MORPHINE 2 MG/ML SYR IV PRN ×2 (16:33→20:16)
[2022-09-19 16:58] VITALS: BMI 38.4
[2022-09-19 19:55] LABS: Protime INR 1.08
[2022-09-19] MEDS ORDERED: LITHIUM CARBONATE 300 MG CAP ONE (19:56)
[2022-09-19] MEDS ORDERED: METOPROLOL TAR 25 MG TAB ONE (19:57)
[2022-09-19] MEDS: METOPROLOL TAR 25 MG TAB PO SCH (20:18)
[2022-09-19] MEDS: LITHIUM CARBONATE 300 MG CAP PO SCH (20:18)
[2022-09-19] MEDS: NITROGLYCERIN 0.4 MG/TAB SL PRN ×2 (22:40→22:56)
[2022-09-20] MEDS: MORPHINE 2 MG/ML SYR IV PRN ×3 (00:21→21:53)
[2022-09-20 04:31] LABS: Absolute Lymphocytes (CBC) 1.6 K/uL (0.7-4.9); Lymphocytes % 25.5 % (15.3-44.8); MCV 86.9 fL (80-100); MPV 8.8 fL (7.6-11.3); RBC Red Blood Cell Count 5.52 M/uL (4.33-5.43)
[2022-09-20 04:41] LABS: BUN Blood Urea Nitrogen 16 mg/dL (7-18); Bicarbonate 27 mmol/L (21-32); Glomerular Filtration Rate 86 ml/min (=/>90); Glucose Level 123 mg/dL (74-106); HDL Cholesterol 29 mg/dL (40-60); Potassium 3.9 mmol/L (3.5-5.1); Sodium Level 141 mmol/L (136-145)
[2022-09-20 04:58] LABS: LDL, Direct 123 mg/dL (100-129)
[2022-09-20] MEDS: NITROGLYCERIN 0.4 MG/TAB SL PRN (07:29)
[2022-09-20] MEDS: LITHIUM CARBONATE 300 MG CAP PO SCH ×2 (08:00→21:11)
[2022-09-20] MEDS: ASPIRIN EC 81 MG TAB PO SCH (09:41)
[2022-09-20] MEDS: METOPROLOL TAR 25 MG TAB PO SCH ×2 (09:41→21:12)
[2022-09-20] MEDS ORDERED: FENTANYL CITR 100 MCG/2 ML ONE (11:32)
[2022-09-20] MEDS ORDERED: ATROPINE SULF 1 MG/10 ML SYR IV ONE (11:33)
[2022-09-20] MEDS ORDERED: MIDAZOLAM HCL 2 MG/2 ML INJ ONE (11:33)
[2022-09-20] MEDS ORDERED: NITROGLYCERIN 100 MCG/ML SYR (for cath lab use only) IV ONE (11:33)
[2022-09-20] MEDS ORDERED: VERAPAMIL HCL 10 MG/4 ML VIAL IV ONE (11:33)
[2022-09-20] MEDS ORDERED: HEPARIN 10,000 UNIT/10 ML VIAL IV ONE (11:33)
[2022-09-20] MEDS ORDERED: HEPA 1000U/500MLS 2,000 UNIT/1,000 ML BAG IV ONE (11:35)
[2022-09-20] MEDS ORDERED: HEPARIN 5000 UNIT/ML 1 ML VIAL ONE (11:35)
[2022-09-20] MEDS ORDERED: NA CHLORIDE 0.9% 500 ML ONE (11:50)
--- NOTE | 2022-09-20 12:51 | EKG ---
Test Date: 2022-09-19 Test Time: 11:23:23 Borough Coordinator: ANGE MEASUREMENT RESULTS: Intervals: Rate: 98 MN: 146 QRSD: 82 QT: 364 QTc: 464 Ashley: P: 68 MN: 146 QRS: -1 T: 70 INTERPRETIVE STATEMENTS: Normal sinus rhythm Nonspecific T wave abnormality Prolonged QT Abnormal ECG Compared to ECG 09/16/2022 21:15:19 T-wave abnormality now present Prolonged QT interval now present Ventricular-paced complex(es) or rhythm no longer present Electronically Signed On 09-20-22 12:49:11 HEALTH SAFETY INSTRUCTOR by Jr Vela
--- NOTE | 2022-09-20 12:58 | EKG ---
Test Date: 2022-09-16 Test Time: 21:15:19 District Supervisor: YONATAN MEASUREMENT RESULTS: Intervals: Rate: 128 MN: QRSD: 152 QT: 370 QTc: 540 [place]: P: 107 MN: QRS: 165 T: -41 INTERPRETIVE STATEMENTS: Ventricular-paced rhythm Abnormal ECG No previous ECG available for comparison Electronically Signed On 09-20-22 12:52:32 FAMILY RESOURCE COORDINATOR by Jr Vela
--- NOTE | 2022-09-20 13:53 | ECHO ---
HEIGHT: 5 ft 9 in WEIGHT: 260 lb 0 oz DATE OF STUDY: 09/20/[address]: Neva Fu MD 2-DIMENSIONAL: YES M.MODE: YES DOPPLER: YES COLOR FLOW: YES TDS: PORTABLE: YES DEFINITY: BUBBLE STUDY: DIAGNOSIS: CHEST PAIN, RULE OUT ACUTE CORONARY SYNDROME CARDIAC HISTORY: CATHERIZATION: NO SURGERY: NO PROSTHETIC VALVE: NO PACEMAKER: NO MEASUREMENTS (cm) DIASTOLIC (NORMALS) SYSTOLIC (NORMALS) IVSd 1.1 (0.6-1.2) LA Diam 2.8 (1.9-4.0) LVEF 66% LVIDd 5.1 (3.5-5.7) LVIDs 3.3 (2.0-3.5) %FS 36% LVPWd 1.1 (0.6-1.2) Ao Diam 2.8 (2.0-3.7) 2 DIMENSIONAL ASSESSMENT: RIGHT ATRIUM: NORMAL LEFT ATRIUM: NORMAL RIGHT VENTRICLE: NORMAL LEFT VENTRICLE: NORMAL TRICUSPID VALVE: NORMAL MITRAL VALVE: NORMAL PULMONIC VALVE: NORMAL AORTIC VALVE: NORMAL PERICARDIAL EFFUSION: NONE AORTIC ROOT: NORMAL LEFT VENTRICULAR WALL MOTION: NORMAL DOPPLER/COLOR FLOW: TRACE MITRAL REGURGITATION COMMENTS: 1. NORMAL LEFT VENTRICULAR EJECTION FRACTION 60-65% 2. NORMAL WALL MOTION 3. NORMAL DIASTOLIC FUNCTION 4. TRACE MITRAL REGURGITATION TECHNOLOGIST: SONJA PINON
[2022-09-20 14:20] VITALS: O2SAT 96
[2022-09-20] MEDS: ENOXAPARIN 40 MG/0.4 ML SQ SCH (15:37)
[2022-09-20] MEDS: ATORVASTATIN 80 MG TAB PO SCH (15:37)
--- NOTE | 2022-09-20 20:14 | PN ---
Date of Progress Note: 09/20/2022 Subjective: Seen by bedside, doing clinically well. Status post left heart catheterization. No sig nificant coronary artery disease is found. Review of Systems: No chest pain, shortness of breath, orthopnea, cough. No nausea, vomiting, or diarrhea. No abdomina l pain. No dysuria, polyuria or urinary urgency. No skin rash. All other systems reviewed and they are negative. Physical Examination: Vital Signs: Reviewed. Head and Neck: Pupils are equal, reactive to light. Intact eye movements. No JVD. No cervical lym phadenopathy. Neck: Supple. Thyroid is not enlarged. Lungs: Clear to auscultation bilaterally. No rhonchi, wheezing, or crackles. No accessory muscle u se. Heart: Regular rate and rhythm. No extra sounds. Abdomen: Soft, nontender. Bowel sounds positive. No organomegaly. No masses or hernia. No rigidi ty or rebound. Extremities: No edema, clubbing, cyanosis. Intact pulses. Skin: No rash. Neurologic: Alert, awake, oriented x3. No acute focal deficits appreciated. Investigation: Labs were reviewed. Assessment And Recommendation: 1.Chest pain. Coronary angiogram was done and no coronary artery disease. This is likely noncardia c in origin. No further cardiac workup is recommended at this time, and the patient can be released from Cardiology standpoint and follow up as an outpatient. 2.Hypertension. Blood pressure is controlled. Continue home medications. SR/MODL Voice ID: [id number] Report ID: [id number]
--- NOTE | 2022-09-20 20:21 | CON ---
Date of Consultation: 09/19/2022 Reason For Consultation: Chest pain. History Of Present Illness: This is a 57-year-old male with a history of hypertension, dyslipidemia, presented with chest pain, left-sided, pressure-like, with shortness of breath radiating to the left upper extremity that has been going on and off for 3 days prior to the admission. Pain can be exert ional and can be addressed, and never had history of cardiac disease. Past Medical History: As outlined above in the HPI. Medications: Refer reconciliation sheet for detailed list. Allergies: NO KNOWN DRUG ALLERGIES. Family History: No premature coronary artery disease or cancer. Social History: Does not smoke or drink. Does not use any drugs. Review of Systems: All systems reviewed are negative except for mentioned in HPI. Physical Examination: Vital Signs: Reviewed. Head and Neck: Pupils are equal, reactive to light. Intact eye movements. No JVD. No cervical lym phadenopathy. Neck: Supple. Thyroid is not enlarged. Lungs: Clear to auscultation bilaterally. No rhonchi, rales, or crackles. No accessory muscle use. Heart: Regular rate and rhythm. No extra sounds. Abdomen: Soft, nontender. Bowel sounds positive, no organomegaly. No masses or hernia. No rigidit y or rebound. Extremities: No edema, clubbing, or cyanosis. Intact pulses. Skin: No rash. Neurologic: Alert, awake, oriented x3. No acute deficit appreciated. Investigations: His troponin is negative ; two sets. BUN is 14, creatinine 1.1. D-dimer is 833. C TA of the chest, no PE. He has a left lower lobe nodule and right middle lobe nodule. Assessment And Recommendations: 1.Chest pain, new onset, could be suggestive of unstable angina. Keep him n.p.o. past midnight. We will plan for coronary angiogram in the morning. Keep on aspirin 81 mg daily. Use nitroglycerin p. r.n. for pain control and morphine sulfate. 2.Lung nodules on the CT scan. This is to be followed up as an outpatient with Primary Care Physici an and Pulmonary. 3.Hypertension. Blood pressure is controlled, continue home medications. SR/MODL Voice ID: [id number] Report ID: [id number]
--- NOTE | 2022-09-20 22:51 | OP ---
Date of Procedure: 09/20/2022 Surgeon: MARILYNN CRAWFORD Procedures Performed: 1.Selective coronary angiogram. 2.Left heart catheterization. Indication: Unstable angina. Access: Right radial artery 6-[place] closed with TR band. Complications: None. Estimated Blood Loss: Bleeding less than 10 mL. Anesthesia: Total sedation time was 15 minutes, used fentanyl and Versed. Description Of Procedure: After risks, benefits, and alternatives were explained, the patient agreed to procedure and signed informed consent. Patient was brought into the cardiac catheterization [facility] and prepped and draped in usual sterile fashion. I then accessed right radial artery using [employer] micropuncture system, a 6-[place] Slender sheath and we took 5-[place] Monument 4 catheter into th e aortic root over a J-wire, engaged left main, then right coronary artery and took standard views an d then passed the catheter over the wire into the LV. LVEDP was measured. Pullback did not record a ny gradient. Then, the catheter was removed. Sheath was removed and TR band was placed for closure with good hemostasis. Findings: 1.Left main: Long, large, with luminal irregularities. 2.LAD: Large vessel with luminal irregularities, normal diagonal branches. 3.Left circumflex: Small, nondominant, proximal 20%, mid 30% and normal OM. 4.RCA: Large and dominant, mid stent 20%, distal 10% and luminal irregularities. 5.Normal LVEDP between 5 and 10 mmHg. Conclusion: 1.Mild nonobstructive coronary artery disease. 2.Normal left ventricular end-diastolic pressure. Recommendation: Cardiac risk factor modification and medical management of statin and baby aspirin. SR/MODL Voice ID: [id number] Report ID: [id number]
[2022-09-21] MEDS: MORPHINE 2 MG/ML SYR IV PRN (03:05)
[2022-09-21 06:00] LABS: Absolute Lymphocytes (CBC) 1.5 K/uL (0.7-4.9); MCV 87.4 fL (80-100); MPV 8.5 fL (7.6-11.3); RBC Red Blood Cell Count 5.49 M/uL (4.33-5.43)
[2022-09-21 06:36] LABS: Albumin 3.6 g/dL (3.4-5.0); Bilirubin Total 0.4 mg/dL (0.2-1.0); Folic Acid, (Folate) 9.6 ng/mL (3.1-17.5); Magnesium 2.4 mg/dL (1.8-2.4); Potassium 4.1 mmol/L (3.5-5.1); Protein, Total 7.1 g/dL (6.4-8.2); Thyroid Stimulating Hormone 1.76 uIU/mL (0.360-3.740)
--- NOTE | 2022-09-21 07:29 | P.HP ---
Certification for Inpatient Patient admitted to: Inpatient With expected LOS: >2 Midnights Patient will require the following post-hospital care: None Practitioner: I am a practitioner with admitting privileges, knowledge of patient current condition, hospital course, and medical plan of care. Services: Services provided to patient in accordance with Admission requirements found in Title 42 Section 412.3 of the Code of Federal Regulations Patient History Date of Service: 09/19/22 Reason for admission: Chest pain rule out acute coronary syndrome; Left-sided swelling History of Present Illness: Patient is a 57-year-old gentleman who came to the hospital with chest discomfort and pretty much generalized complaints with abdominal pain and body aches. He also states that his left side is swollen. He came to the emergency room because he was just not feeling better and he wanted to see what was wrong.In the emergency room his work-up is pretty much unremarkable. However, he is having persistent chest pain. Will discuss with cardiology regarding further plan of care. Allergies No Known Allergies Allergy (Unverified 09/19/22 18:07) Home Medications: Atorvastatin Calcium [Lipitor] 80 mg PO DAILY 09/19/22 Duloxetine HCl 60 mg PO DAILY 09/19/22 Lisinopril/Hydrochlorothiazide [Lisinopril-Hctz 20-12.5 mg Tab] 1 each PO DAILY 09/19/22 [place] Carbonate [Lithotabs 300MG] 300 mg PO BREAKFAST 09/19/22 [place] Carbonate [Lithotabs 300MG] 900 mg PO BEDTIME 09/19/22 Propranolol HCl [Inderal Xl] 80 mg PO DAILY 09/19/22 - Past Medical/Surgical History -: Bipolar disorder -: Hyperlipidemia -: Hypertension Past Surgical History: Patient denies surgical history - Family History Father Family History: Reviewed- Non-Contributory - Social History Smoking Status: Never smoker Alcohol use: No CD- Drugs: No Caffeine use: Yes Review of Systems 10-point ROS is otherwise unremarkable Physical Examination - Vital Signs Temperature: 98.2 F Blood Pressure: 116/62 Pulse: 73 Respirations: 18 Pulse Ox (%): 97 - Physical Exam General: Alert, In no apparent distress, Oriented x3 HEENT: Atraumatic, PERRLA, Mucous membr. moist/pink, EOMI, Sclerae nonicteric Neck: Supple, 2+ carotid pulse no bruit, No LAD, Without JVD or thyroid abnormality Respiratory: Clear to auscultation bilaterally, Normal air movement Cardiovascular: Regular rate/rhythm, Normal S1 S2 Gastrointestinal: Normal bowel sounds, No tenderness Musculoskeletal: No tenderness Integumentary: No rashes Neurological: Normal gait, Normal speech, Normal strength at 5/5 x4 extr, Normal tone, Normal affect Lymphatics: No axilla or inguinal lymphadenopathy Assessment & Plan - Problems (Diagnosis) (1) Chest pain, rule out acute myocardial infarction Current Visit: Yes Status: Acute (2) Unstable angina Current Visit: Yes Status: Acute (3) Abdominal pain Current Visit: Yes Status: Acute (4) Pulmonary nodule Current Visit: Yes Status: Acute - Plan 1. Serial troponins and EKG 2. Appreciate Cardiology consultation 3. Echocardiogram and stress test if cardiology is agreeable 4. Anti-platelet therapy, anti coagulation, beta-sue, statin, and O2 as needed 5. IV morphine for pain 6. Nitro p.r.n. - Advance Directives Does patient have a Living Will: Yes Does patient have a Durable POA for Healthcare: Yes
--- NOTE | 2022-09-21 07:30 | P.PN ---
Subjective Date of Service: 09/20/22 Scheduled for left heart catheterization; also with some abdominal complaints.Swelling is improved Review of Systems 10-point ROS is otherwise unremarkable Physical Examination - Vital Signs Temperature: 98.2 F Blood Pressure: 116/62 Pulse: 73 Respirations: 18 Pulse Ox (%): 97 - Physical Exam General: Alert, In no apparent distress HEENT: Atraumatic, PERRLA, EOMI Neck: Supple, JVD not distended Respiratory: Clear to auscultation bilaterally, Normal air movement Cardiovascular: Regular rate/rhythm, Normal S1 S2 Gastrointestinal: Normal bowel sounds, No tenderness Musculoskeletal: No tenderness Integumentary: No rashes Neurological: Normal speech, Normal tone, Normal affect Lymphatics: No axilla or inguinal lymphadenopathy - Studies Medications List Reviewed: Yes Assessment & Plan - Problems (Diagnosis) (1) Chest pain, rule out acute myocardial infarction Current Visit: Yes Status: Acute (2) Unstable angina Current Visit: Yes Status: Acute (3) Abdominal pain Current Visit: Yes Status: Acute (4) Pulmonary nodule Current Visit: Yes Status: Acute - Plan 1. Patient proceed with heart catheterization today. Await results - Advance Directives Does patient have a Living Will: Yes Does patient have a Durable POA for Healthcare: Yes
[2022-09-21] MEDS: ATORVASTATIN 80 MG TAB PO SCH (09:18)
[2022-09-21] MEDS: ASPIRIN EC 81 MG TAB PO SCH (09:18)
[2022-09-21] MEDS: METOPROLOL TAR 25 MG TAB PO SCH (09:18)
[2022-09-21] MEDS: ENOXAPARIN 40 MG/0.4 ML SQ SCH (09:19)
[2022-09-21] MEDS: LITHIUM CARBONATE 300 MG CAP PO SCH (09:19)
--- NOTE | 2022-09-21 09:58 | RAD REPORT ---
EXAM DESCRIPTION: CT - Abdomen Pelvis W Contrast - 09/21/2022 8:42 am CLINICAL HISTORY: Abd pain COMPARISON: Chest Angio dated 09/19/2022; Abdomen Pelvis W Contrast dated 07/09/2019 TECHNIQUE: Biphasic, helical CT imaging of the abdomen and pelvis was performed following 100 ml non -ionic IV contrast. Oral contrast: Yes All CT scans are performed using dose optimization technique as appropriate and may include automated exposure control or mA/KV adjustment according to patient size. FINDINGS: Approximately 23 millimeter rounded mass is present left infrahilar region. This is only p artially imaged. This finding has been addressed on the September 19 CT chest study. Please refer to t hat report. The liver, spleen, and pancreas show no suspicious findings. Liver attenuation is borderline fatty in filtrated. Gallbladder and biliary tree are also without suspicious finding. Gallstones can be occult on CT imaging. Renal function is symmetric. There postsurgical changes to the left kidney. No hydronephrosis or obst ructing calculus. No active renal process seen. No pyelonephritis or acute parenchymal process. No bl adder abnormalities. No adrenal abnormalities. Partially filled urinary bladder shows no suspicious f indings. Prostate calcifications are present. Prostate gland size within normal range. No dilated bowel loops or bowel wall thickening. No appendicitis or active GI process seen. There is sigmoid diverticulosis without diverticulitis. No free air, free fluid or inflammatory stranding. Mi nimal amount of fat extends into each inguinal canal. No suspicious bony findings. Lower lumbar degenerative changes are present. IMPRESSION: CT abdomen and pelvis imaging shows no acute or active process. Gallstones can be occult on CT imaging. Liver attenuation is borderline fatty infiltrated. Left infrahilar mass is only partially imaged. This mass has been addressed on the CT chest study fro m September 19.
[2022-09-21 11:54] VITALS: BP 130/73; TEMP 98.5
== END 2022-09-21 12:12 | disposition home or self-care (01) ==
LOC: ER 11:15 → ERHOLD 15:07 → 2ND 20:31
PROVIDERS: ADMIT Hospitalist; ATTEND Hospitalist
DX: I25.110 Atherosclerotic heart disease of native coronary artery with unstable angina pectoris (principal); I10 Essential (primary) hypertension; R91.8 Other nonspecific abnormal finding of lung field; R10.9 Unspecified abdominal pain; E78.5 Hyperlipidemia, unspecified; E78.00 Pure hypercholesterolemia, unspecified; F31.9 Bipolar disorder, unspecified; Z79.899 Other long term (current) drug therapy; Z90.5 Acquired absence of kidney; Z20.822 Contact with and (suspected) exposure to COVID-19
CPT/HCPCS: 93005 ×2; 93306; 85025 ×3; 80048 ×2; 36415 ×2; 83721; 83735 ×2; 85610; 85044; 80061; 85379; 85730; 84443; 84484 ×3; 84439; 82746; 82607; 83540; 80053; 82533; 84145; 83880; 0240U; 71275; 74177; 71045; 93458; 99285; Q9967 ×2; C1893; Q9966; J1644 ×2; J1650 ×3; J2250; J3010; J2270 ×6; G0378 ×5; J7040; J0461

== ENCOUNTER 2023-03-17 20:39 | Emergency (ER) | payer OTHER ==
--- OUTSIDE RECORDS SUMMARY | 2023-03-17 20:49 | XMS REPORT | Continuity of Care Document ---
:1965 Author Organization [facility] t Address [address] [place] [address] [place] [address] Care Team Providers Name Role Phone Clemente Vang Primary Care Physician 1, [facility] Attending Clinician Unavailable Sallie Javier MD Attending Clinician SALLIE JAVIER Attending Clinician Unavailable SALLIE JAVIER Attending Clinician Unavailable Only, [facility] Test Attending Clinician Unavailable Doctor Unassigned, [place] Attending Clinician Unavailable Clemente Delgado MD Attending Clinician CLEMENTE DELGADO Attending Clinician Unavailable Payers Payer Name Policy Type Policy Number Effective Date Expiration Date S ource Problems This patient has no known problems. Allergies, Adverse Reactions, Alerts Allergy Allergy Status Severity Reaction(s) Onset Inactive Treating Comm ents Source Name Type Date Date Clinician NO KNOWN Drug Active Univers ALLERGIE Class ity of S [facility] Social History Social Habit Start Date Stop Date Quantity Comments Source Exposure to 2022-04-12 2022-04-22 Not sure [facility] SARS-CoV-2 (event) 00:00:00 21:06:00 Medica l Branch Sex Assigned At [birth year] [facility] 00:00:00 00:00:00 Medical [place] Smoking Status Start Date Stop Date Source Unknown if ever smoked [facility] Medications This patient has no known medications. Procedures Procedure Date / Time Performing Clinician Source Performed ASSIGNMENT OF BENEFITS 2022-04-21 12:36:58 Doctor Unassigned, No [facility] Name [facility] VACCINATIONS - 2022-01-15 05:01:00 Doctor Unajason, [facility] CONSENTS, ELIGIBILITY, Name Medical [facility] HISTORY Encounters Start End Encounter Admission Attending Care Care Encounter Source Date/Time Date/Time Type Type Clinicians Facility Department ID 2022-04-22 2022-04-22 Air Tester 1, [facility] 1. 2.840.114 [id number] [facility] 19:30:00 22:00:00 Visit Sallie Javier [id number]. 10 [facility] [id number] [facility] [id number] [facility] 193 Branch 2022-04-22 2022-04-22 Outpatient R SALLIE JAVIER [facility] [id number] Univers 19:30: 19:30:00 SALLIE JAVIER [facility] 2022-04-21 2022-04-21 Laboratory Only, [facility] 1.2.840. 114 [id number] Univers 07:30:00 07:45:00 Only Sallie Javier [id number]. 10 [facility] [id number] [facility] [id number] [facility] 353 Branch 2022-04-21 2022-04-21 Outpatient R SALLIE JAVIER [facility] [id number] Univers 07:30:00 07:30:00 ALIYAH JAVIERL ity [facility] 2022-04-21 2022-04-21 Orders Doctor FONTANA 1.2.840.114 [id number] Univers 00:00:00 00:00:00 Only UnassignedJULIANA [id number] ity of [place] [facility] [id number] [facility] [id number] [facility] 009 Branch 2022-04-12 2022-04-12 Outpatient R SALLIE JAVIER [facility] [id number] Univers 19:30:00 19:30:00 SALLIE JAVIER [facility] 2022-03-11 2022-03-11 Outpatient R SALLIE JAVIER [facility] [id number] Univers 19:30:00 19:30:00 SALLIE JAVIER ituma of [facility] 2022-02-27 2022-02-27 Outpatient R SALLIE JAVIER [facility] [id number] Univers 19:30:00 19:30:00 ALIYAH JAVIERL [facility] 2022-01-15 2022-01-15 Orders Doctor ADDI 1.2.840.114 [id number] Univers 00:00:00 00:00:00 Only Unassigned, JULIANA [id number] ity of [facility] [id number] [facility] [id number] [facility] 009 Branch 2021-12-08 2021-12-08 Air Tester 1, [facility] 1. 2.840.114 [id number] Univers 19:30:00 22:00:00 Visit GreggVida leejulianne TAVERAS 350.1.13. 10 ity [facility] [id number] [facility] [id number] [facility] 193 Branch 2021-12-08 2021-12-08 Outpatient R SALLIE JAVIER [facility] [id number] Univers 19:30:00 19:30:00 SALLIE JAVIER [facility] 2021-12-07 2021-12-07 Laboratory Only, [facility] 1.2.840. 114 [id number] Univers 08:00:00 08:15:00 Only Clemente Delgado [id number] ity [facility] [id number] [facility] [id number] [facility] [address] 2021-12-07 2021-12-07 Outpatient R DANNY [facility] [id number] Univers 08:00:00 08:00:00 CLEMENTE low [facility] Results This patient has no known results.
[2023-03-17] MEDS ORDERED: MORPHINE 4 MG/ML SYR ONE ×2 (21:27→23:51)
[2023-03-17] MEDS ORDERED: ONDANSETRON 4 MG/2 ML VIAL ONE (21:27)
[2023-03-17 21:46] LABS: Absolute Lymphocytes (CBC) 1.2 K/uL (0.7-4.9); Hematocrit 44.8 % (39.6-49.0); Lymphocytes % 20.8 % (15.3-44.8); MCV 85.9 fL (80-100); MPV 8.3 fL (7.6-11.3); RBC Red Blood Cell Count 5.22 M/uL (4.33-5.43)
[2023-03-17 21:47] LABS: Protime INR 1.04
--- NOTE | 2023-03-17 21:57 | RAD REPORT ---
EXAM DESCRIPTION: [facility]03/17/2023 9:44 pm CLINICAL HISTORY: Chest pain COMPARISON: January 2023 FINDINGS: Postsurgical changes of a left lobectomy with volume loss. Haziness overlying the left lung may all be normal postsurgical change. An infiltrate/pleural effusio n superimposed over the lobectomy can have a similar appearance. If clinically indicated further eval uation with CT could be obtained Right lung appears clear. The heart is normal size
[2023-03-17 22:15] LABS: ALT/SGPT 52 U/L (16-61); Albumin 3.5 g/dL (3.4-5.0); Alkaline Phosphatase 73 U/L (45-117); BUN Blood Urea Nitrogen 13 mg/dL (7-18); Bicarbonate 25 mEq/L (21-32); Bilirubin Total 0.2 mg/dL (0.2-1.0); Glomerular Filtration Rate 95 ml/min (=/>90); Glucose Level 183 mg/dL (74-106); NT PRO-BNP 142 pg/mL (<125); Protein, Total 7.2 g/dL (6.4-8.2); Sodium Level 137 mEq/L (136-145); Troponin High Sensitivity 18.6 pg/mL (<58.9)
[2023-03-17 22:43] LABS: AST/SGOT 24 U/L (15-37); Bilirubin Direct < 0.1 mg/dL (0-0.2); Bilirubin Indirect, Calculated ND mg/dL (0.2-0.8)
--- NOTE | 2023-03-18 01:20 | ER ---
Nurse's Notes [facility] Name: Dillon Be Age: 57 yrs Sex: Male : 1965 Arrival Date: 03/17/2023 Time: 20:39 Bed 4 Private MD: Diagnosis: Left chest wall pain, postoperative pain after left lung lobectomy., Pleuritic chest wall pain;Chest pain, unspecified Presentation: 03/17 20:57 Chief complaint: Patient states: Left lower lobectomy 6-8 weeks ago, pain the last nj1 couple of days but today after "i sneezed, i felt my ribs popped", about 30min-1hr ago and the pain got much worse, "it is hard to breath". Coronavirus screen: Vaccine status: Patient reports receiving the 2nd dose of the covid vaccine. Ebola Screen: Patient denies travel to an Ebola-affected area in the 21 days before illness onset. Initial Sepsis Screen: Does the patient meet any 2 criteria? No. Patient's initial sepsis screen is negative. Does the patient have a suspected source of infection? No. Patient's initial sepsis screen is negative. Risk Assessment: Do you want to hurt yourself or someone else? Patient reports no desire to harm self or others. Onset of symptoms was March 17, 2023 at 20:00. 20:57 Method Of Arrival: Ambulatory [facility] 20:57 Acuity: SERAFIN 2 nj1 Triage Assessment: 23:00 Respiratory: Reports shortness of breath at rest Onset: The symptoms/episode rv began/occurred suddenly, the patient has mild shortness of breath. 23:00 General: Appears in no apparent distress. rv Historical: - Allergies: 21:02 No Known Allergies; nj1 - PMHx: 21:02 Lung CA; Depression; Bipolar disorder; nj1 21:03 Bipolar disorder; Hypercholesterolemia; Depression; Lung CA; Hypertensive disorder; sp4 - PSHx: 21:02 left nephrectomy; right elbow sx; Bilateral Carpel Tunnel Sx; Left lower lobectomy; nj1 - Immunization history:: Client reports receiving the 2nd dose of the Covid vaccine. - Social history:: Smoking status: Patient denies any tobacco usage or history of. - Family history:: not pertinent. Screenin:30 [facility] ED Fall Risk Assessment (Adult) History of falling in the last 3 months, rv including since admission No falls in past 3 months (0 pts). Abuse screen: Denies threats or abuse. Denies injuries from another. Nutritional screening: No deficits noted. Tuberculosis screening: No symptoms or risk factors identified. Assessment: 21:29 General: Appears uncomfortable, Behavior is calm, cooperative. Pain: Complains of pain rv in epigastric area and left upper quadrant Pain does not radiate. Pain currently is 8 out of 10 on a pain scale. Quality of pain is described as sharp. Neuro: Level of Consciousness is awake, alert, obeys commands, Oriented to person, place, time, situation. Cardiovascular: Capillary refill < 3 seconds Pulses are all present. Rhythm is regular. Respiratory: Airway is patent Respiratory effort is even, unlabored, Breath sounds are clear bilaterally. GI: No signs and/or symptoms were reported involving the gastrointestinal system. : No signs and/or symptoms were reported regarding the genitourinary system. 23:30 Reassessment: Patient and/or family updated on plan of care and expected duration. Pain ha1 level reassessed. Patient is alert, oriented x 3, equal unlabored respirations, skin warm/dry/pink. pain 7/10. Vital Signs: 20:57 BP 139 / 75; Pulse 77; Resp 20; Temp 98.1; Pulse Ox 98% on R/A; Weight 122.47 kg; nj1 Height 5 ft. 9 in. ; Pain 7/10; 21:30 BP 123 / 70; Pulse 76; Resp 16; Pulse Ox 94% on R/A; rv 23:30 BP 116 / 71; Pulse 60; Resp 18 S; Pulse Ox 94% on R/A; ha1 03/18 00:55 BP 137 / 83; Pulse 59; Resp 18; Pulse Ox 95% on R/A; rv 03/17 20:57 Body Mass Index 39.87 (122.47 kg, 175.26 cm) nj1 03/17 20:57 Pain Scale: Adult [facility] ED Course: 03/17 20:42 Patient arrived in ED. ts1 21:01 Danial Randall MD is Attending Physician. sp4 21:01 Triage completed. nj1 21:03 Arm band placed on left wrist. nj1 21:24 Gee Vitale RN is Primary Nurse. rv 21:25 Inserted saline lock: 20 gauge in right antecubital area, using aseptic technique. rv Blood collected. 21:30 Patient has correct armband on for positive identification. Client placed on continuous rv cardiac and pulse oximetry monitoring. NIBP monitoring applied. 21:46 XRAY Chest (1 view) In Process Unspecified. EDMS 23:05 CT Chest, Abdomen, Pelvis - W/Contrast In Process Unspecified. EDMS 03/18 01:38 No provider procedures requiring assistance completed. IV discontinued, intact, rv bleeding controlled, No redness/swelling at site. Pressure dressing applied. Administered Medications: 03/17 21:24 Drug: morphine IVP or IV 4 mg Route: IVP; Infused Over: 4 mins; Site: right antecubital;rv 03/18 01:37 Follow up: Response: No adverse reaction; Pain is decreased rv 03/17 21:25 Drug: Ondansetron IVP 4 mg Route: IVP; Site: right antecubital; rv 03/18 01:37 Follow up: Response: No adverse reaction; Nausea is decreased rv 03/17 23:45 Drug: morphine IVP or IV 4 mg Route: IVP; Infused Over: 4 mins; Site: right antecubital;ha1 03/18 01:37 Follow up: Response: Pain is decreased rv 01:30 Drug: [place] PO 10 mg-325 mg 1 tabs Route: PO; rv 01:37 Follow up: Response: Medication administered at discharge. rv 01:30 Drug: Promethazine PO 25 mg Route: PO; rv 01:37 Follow up: Response: Medication administered at discharge. rv Medication: 01:39 VIS not applicable for this client. rv Outcome: 01:19 Discharge ordered by . sp4 01:38 Discharged to home ambulatory, with family. rv 01:38 Condition: good 01:38 Discharge instructions given to patient, family, Instructed on discharge instructions, follow up and referral plans. medication usage, Demonstrated understanding of instructions, medications, Prescriptions given X 3. 01:39 Patient left the ED. rv Signatures: Dispatcher [employer] EDNC Gee Vitale RN RN rv Nimisha Mccann RN RN ha1 Danial Randall MD MD sp4 Audrey Benitez RN RN nj1 Jazmín Washburn PAS PAS ts1 Corrections: (The following items were deleted from the chart) 03/17 21: 21:02 PMHx: Hypertensive disorder; nj1 nj1 : 21:02 PMHx: Hypercholesterolemia; nj1 nj1 : 21:03 PSHx: left nephrectomy; sp4 sp4 : 21:03 PSHx: Bilateral Carpel Tunnel Sx; sp4 sp4 : 21:03 PSHx: right elbow sx; sp4 sp4
--- NOTE | 2023-03-18 01:20 | EDPHYS ---
Physician Documentation [facility] Name: Dillon Be Age: 57 yrs Sex: Male : 1965 Arrival Date: 03/17/2023 Time: 20:39 Bed 4 Private MD: ED Physician Danial Randall HPI: 03/17 21:01 This 57 yrs old Male presents to ER via Unassigned with complaints of sp4 Shortness Of Breath. 21:01 The patient has shortness of breath at rest. 57-year-old male with history of lung sp4 cancer also history of left lower lung resection secondary to cancer approximately 6 weeks ago at the [facility] in [place]. Patient today presents with moderate to severe left lower chest pain starting 30 minutes ago after a forceful sneeze at home. Patient states he sneezed at home causing moderate to severe left lower lateral chest pain roughly at at site of lung excision. Patient also reports dyspnea. Historical: - Allergies: 21:02 No Known Allergies; nj1 - PMHx: 21:02 Lung CA; Depression; Bipolar disorder; nj1 21:03 Bipolar disorder; Hypercholesterolemia; Depression; Lung CA; Hypertensive disorder; sp4 - PSHx: 21:02 left nephrectomy; right elbow sx; Bilateral Carpel Tunnel Sx; Left lower lobectomy; nj1 - Immunization history:: Client reports receiving the 2nd dose of the Covid vaccine. - Social history:: Smoking status: Patient denies any tobacco usage or history of. - Family history:: not pertinent. ROS: 21:03 Constitutional: Negative for fever, chills, and weight loss, Eyes: Negative for sp4 injury, pain, redness, and discharge, ENT: Negative for injury, pain, and discharge, Neck: Negative for injury, pain, and swelling, Cardiovascular: Negative for palpitations, and edema, positive left pleuritic chest pain Respiratory: Positive left pleuritic chest pain positive shortness of breath, positive cough, Abdomen/GI: Negative for abdominal pain, nausea, vomiting, diarrhea, and constipation, Back: Negative for injury and pain, : Negative for injury, bleeding, discharge, and swelling, MS/Extremity: Negative for injury and deformity, Skin: Negative for injury, rash, and discoloration, Neuro: Negative for headache, weakness, numbness, tingling, and seizure, Psych: Negative for depression, anxiety, Allergy/Immunology: Negative for hives, rash, and allergies Endocrine: Negative for neck swelling, polydipsia, polyuria, polyphagia, and weight changes Hematologic/Lymphatic: Negative for swollen nodes, abnormal bleeding, and unusual bruising Exam: 21:04 Constitutional: This is a well developed, well nourished patient who is awake, alert, sp4 mild to moderate distress secondary to pain Head/Face: Normocephalic, atraumatic. Eyes: Pupils equal round and reactive to light, extra-ocular motions intact. Lids and lashes normal. Conjunctiva and sclera are not injected. Cornea within normal limits. Periorbital areas with no swelling, redness, or edema. ENT: Nares patent. No nasal discharge, no septal abnormalities noted. Tympanic membranes are normal and external auditory canals are clear. Oropharynx with no redness, swelling, or masses, exudates, or evidence of obstruction, uvula midline. Mucous membranes moist. Neck: Trachea midline, no thyromegaly or masses palpated, and no cervical lymphadenopathy. Supple, full range of motion without nuchal rigidity, or vertebral point tenderness. No Meningismus. Chest/axilla: Normal chest wall appearance and motion. Nontender with no deformity. No lesions are appreciated. Cardiovascular: Regular rate and rhythm with a normal S1 and S2. No gallops, murmurs, or rubs. Normal PMI, no JVD. No pulse deficits. Respiratory: Lungs have equal breath sounds bilaterally, clear to auscultation and percussion. No rales, rhonchi or wheezes noted. No increased work of breathing, no retractions or nasal flaring. Abdomen/GI: Soft, non-tender, with normal bowel sounds. No distension or tympany. No guarding or rebound. No evidence of tenderness throughout. Back: No spinal tenderness. No costovertebral tenderness. Skin: Warm, dry with normal turgor. Normal color with no rashes, no lesions, and no evidence of cellulitis. MS/ Extremity: Pulses equal, no cyanosis. Neurovascular intact. Full, normal range of motion. Neuro: Awake and alert, GCS 15, oriented to person, place, time, and situation. Cranial nerves II-XII grossly intact. Motor strength 5/5 in all extremities. Sensory grossly intact. Psych: Awake, alert, with orientation to person, place and time. Behavior, mood, and affect are within normal limits 03/18 01:17 ECG was reviewed by the Attending Physician. Patient's EKG revealed normal sinus rhythm sp4 at a rate of 62, EKG time 2114. No ST elevation or depression. No ectopy. Overall normal EKG Vital Signs: 03/17 20:57 BP 139 / 75; Pulse 77; Resp 20; Temp 98.1; Pulse Ox 98% on R/A; Weight 122.47 kg; nj1 Height 5 ft. 9 in. ; Pain 7/10; 21:30 BP 123 / 70; Pulse 76; Resp 16; Pulse Ox 94% on R/A; rv 23:30 BP 116 / 71; Pulse 60; Resp 18 S; Pulse Ox 94% on R/A; ha1 03/18 00:55 BP 137 / 83; Pulse 59; Resp 18; Pulse Ox 95% on R/A; rv 03/17 20:57 Body Mass Index 39.87 (122.47 kg, 175.26 cm) nj1 03/17 20:57 Pain Scale: Adult nj MDM: 03/17 21:12 Patient medically screened. sp4 03/18 01:09 Differential diagnosis: Anxiety Reaction Bronchitis CHF exacerbation, Chronic sp4 Obstructive Pulmonary Disease pneumonia, Pneumothorax. Data reviewed: vital signs, nurses notes, old medical records, lab test result(s), cardiac enzymes, CBC, electrolytes, Flu: hepatic panel, EKG, radiologic studies, CT scan, plain films. ED course: CT chest abdomen and pelvis with IV contrast has revealed -lung parenchyma demonstrates changes of left lower lobectomy. No significant mass nodule are identified. Trachea and mainstem bronchus demonstrate to be normal. No significant pleural or pericardial effusion. Heart is normal in size. Minimal early coronary artery calcification. Aorta and great vessels demonstrate to be unremarkable. The central pulmonary arteries demonstrate to be normal with no significant major filling defect. No significant mediastinal or hilar adenopathy. Axilla regions demonstrate to be clear. Bone windows demonstrate no significant skeletal lesion. Impression. Status post left lower lung lobectomy. Status post partial left nephrectomy with no definitive evidence for local recurrence or significant change when compared to prior study. Fatty infiltration of the liver. Minimal diverticulosis without evidence of acute diverticulitis. Slightly prominent prostate gland perhaps related to BPH.. 03/17 21:01 Order name: Basic Metabolic Panel; Complete Time: 00:13 [facility] 03/17 21:01 Order name: CBC with Diff; Complete Time: 00: [facility] 03/17 21: Order name: LFT's; Complete Time: 00:13 [facility] 03/17 21:01 Order name: NT PRO-BNP; Complete Time: 00:13 [facility] 03/17 21:01 Order name: PT-INR; Complete Time: 00: [facility] 03/17 21:01 Order name: Troponin HS; Complete Time: 00: [facility] 03/17 21:01 Order name: XRAY Chest (1 view); Complete Time: 23:18 [facility] 03/17 21:55 Order name: CT Chest, Abdomen, Pelvis - W/Contrast [facility] 03/17 21: Order name: EKG; Complete Time: 21: [facility] 03/17 21:01 Order name: Cardiac monitoring; Complete Time: 21: [facility] 03/17 21:01 Order name: EKG - Nurse/Tech; Complete Time: 21: [facility] 03/17 21: Order name: IV Saline Lock; Complete Time: : [facility] 03/17 21: Order name: Labs collected and sent; Complete Time: : [facility] 03/17 21: Order name: O2 Per Protocol; Complete Time: : [facility] 03/17 21: Order name: O2 Sat Monitoring; Complete Time: : EC:17 Rate is 62 beats/min. Rhythm is regular, Normal Sinus Rhythm. QRS [place] is Normal. [place] sp4 interval is normal. QRS interval is normal. QT interval is normal. T waves are Normal. No ST changes noted. Clinical impression: Normal ECG. Interpreted by me. Administered Medications: 03/17 21:24 Drug: morphine IVP or IV 4 mg Route: IVP; Infused Over: 4 mins; Site: right antecubital;rv 03/18 01:37 Follow up: Response: No adverse reaction; Pain is decreased rv 03/17 21:25 Drug: Ondansetron IVP 4 mg Route: IVP; Site: right antecubital; rv 03/18 01:37 Follow up: Response: No adverse reaction; Nausea is decreased rv 03/17 23:45 Drug: morphine IVP or IV 4 mg Route: IVP; Infused Over: 4 mins; Site: right antecubital;ha1 03/18 01:37 Follow up: Response: Pain is decreased rv 01:30 Drug: [place] PO 10 mg-325 mg 1 tabs Route: PO; rv 01:37 Follow up: Response: Medication administered at discharge. rv 01:30 Drug: Promethazine PO 25 mg Route: PO; rv 01:37 Follow up: Response: Medication administered at discharge. rv Disposition Summary: 03/18/23 01:19 Discharge Ordered Location: Home sp4 Problem: new sp4 Symptoms: have improved sp4 Condition: Stable sp4 Diagnosis - Left chest wall pain, postoperative pain after left lung lobectomy., Pleuritic sp4 chest wall pain - Chest pain, unspecified sp4 Followup: sp4 - With: Private Physician - When: 2 - 3 days - Reason: Recheck today's complaints Discharge Instructions: - Discharge Summary Sheet sp4 - Nonspecific Chest Pain, Adult, [id number] sp4 Forms: - Thank You Letter sp4 Prescriptions: - dextromethorphan HBr 15 mg/5 mL Oral liquid - take 10 milliliter by ORAL route every 8 hours PRN cough; 89 milliliter; sp4 Refills: 0, Product Selection Permitted - Tramadol 50 mg Oral Tablet - take 2 tablet by ORAL route every 6 hours as needed; 30 tablet; Refills: 0, sp4 Product Selection Permitted - promethazine 25 mg Oral Tablet - take 1 tablet by ORAL route every 6 hours As needed; 20 tablet; Refills: 0, sp4 Product Selection Permitted Signatures: Dispatcher [employer] EDKojo Giang, JORGE-C [employer] CEO-Cla1 Gee Vitale RN RN rv Nimisha Mccann RN RN Danial Silver MD MD sp4 Audrey Benitez RN RN nj1 Corrections: (The following items were deleted from the chart) 03/17 21:03 21:02 PMHx: Hypertensive disorder; nj1 nj1 21:03 21:02 PMHx: Hypercholesterolemia; nj1 nj1 21:03 21:03 PSHx: left nephrectomy; sp4 sp4 21:03 21:03 PSHx: Bilateral Carpel Tunnel Sx; sp4 sp4 21:03 21:03 PSHx: right elbow sx; sp4 sp4 21:04 21:03 Constitutional: Negative for fever, chills, and weight loss, Eyes: Negative for sp4 injury, pain, redness, and discharge, ENT: Negative for injury, pain, and discharge, Neck: Negative for injury, pain, and swelling, Cardiovascular: Negative for palpitations, and edema, positive left pleuritic chest pain Respiratory: Positive left pleuritic chest pain positive shortness of breath, positive cough, Abdomen/GI: Negative for abdominal pain, nausea, vomiting, diarrhea, and constipation, Back: Negative for injury and pain, : Negative for injury, bleeding, discharge, and swelling, MS/Extremity: Negative for injury and deformity, Skin: Negative for injury, rash, and discoloration, Neuro: Negative for headache, weakness, numbness, tingling, and seizure, Psych: Negative for depression, anxiety, Allergy/Immunology: Negative for hives, rash, and allergies Endocrine: Negative for neck swelling, polydipsia, polyuria, polyphagia, and weight changes Hematologic/Lymphatic: Negative for swollen nodes, abnormal bleeding, and unusual bruising sp4
[2023-03-18] MEDS ORDERED: HYDROCODONE/APAP 10/325 TAB ONE (01:29)
[2023-03-18] MEDS ORDERED: PROMETHAZINE 25 MG TABLET ONE (01:29)
[2023-03-18 02:07] VITALS: TEMP 98.1
[2023-03-18 02:11] VITALS: BP 137/83; O2SAT 95
--- NOTE | 2023-03-18 11:50 | RAD REPORT ---
EXAM DESCRIPTION: CT - Chest Abdomen Pelvis W Cont - 03/18/2023 12:52 am CLINICAL HISTORY: 57 years, Male, recent surgery, chest pain, SOB COMPARISON: 02/02/2023 TECHNIQUE: Contrast-enhanced images of the chest, abdomen and pelvis were performed utilizing 5 mm s lice thickness at 5 mm interval reconstruction from the lung apices to the ischial tuberosities after the administration of IV contrast. In addition multiplanar reformats in the coronal and sagittal plane were obtained and reviewed. This exam was performed according to our departmental dose-optimization protocol, which includes auto mated exposure control, adjustment of the mA and/or kV according to patient size and/or use of iterat wesly reconstruction technique. CHEST: The lungs parenchyma demonstrate changes of left lower lobectomy. No significant masses nodule s are identified. The trachea mainstem bronchus demonstrate to be normal. There is no significant p leural and/or pericardial effusions. The heart is normal in size. Minimal early coronary artery vickie cifications. The aorta and great vessels demonstrate to be unremarkable. The central pulmonary arteri es demonstrate to be normal with no significant major filling defects. There is no significant medias tinal and/or hilar lymphadenopathy. The axillary regions demonstrate to be clear. The bone windows demonstrate no significant skeletal lesions. ABDOMEN AND PELVIS: The liver demonstrate decreased attenuation corresponding to fatty infiltration. Otherwise the liver, gallbladder, pancreas, spleen and adrenal glands demonstrate to be unremarkable, no focal lesions are noted. The kidneys demonstrate normal uptake of contrast media with no significant hydronephrosis. There is findings just taking partial left nephrectomy with no definitive evidence for local recurrence/or sig nificant change when compared to prior study. The right kidney demonstrate minimal lobulation perhaps related to scarring. Grossly the unopacified stomach, small bowel and large bowel demonstrate to be within normal limits. There is no evidence for bowel dilatation and/or free air. The appendix is normal. There is minimal diverticulosis within the left site colon/sigmoid: The urinary bladder demonstrate to be unremarkable. The prostate gland is slightly prominent perhap s related to BPH. The aorta demonstrate to be normal. There is no retroperitoneal lymphadenopathy . There is no evidence for ascites and/or significant abnormal fluid collections. The rest of the sof t tissue and bony structures are within normal limits. IMPRESSION: Status post left lower lobectomy. Status post partial left nephrectomy with no definitive evidence for local recurrence/or significant change when compared to prior study. Fatty infiltration of the liver. Minimal diverticulosis without evidence for acute diverticulitis. Slightly prominent prostate gland perhaps related to BPH. Electronically signed by: Khanh Mccarthy MD 03/17/2023 11:27 PM CDT Due to temporary technical issues with the PACS/Fluency reporting system, reports are being signed by the in house radiologist without review as a courtesy to ensure prompt reporting. The interpreting r adiologist is fully responsible for the content of the report.
--- NOTE | 2023-03-23 07:18 | EKG ---
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
== END 2023-03-18 01:39 | disposition home or self-care (01) ==
LOC: ER 20:39
DX: G89.18 Other acute postprocedural pain (principal); Z98.890 Other specified postprocedural states; Z85.118 Personal history of other malignant neoplasm of bronchus and lung; I10 Essential (primary) hypertension
CPT/HCPCS: 85025; 80048; 36415; 85610; 80076; 84484; 83880; 71260; 74177; 71045; 96375; 96374; 99284; Q9967; Q0169; J2405; 93005